=== PATIENT | male | born 1935 | race Caucasian/White ===

== ENCOUNTER 2016-07-13 16:47 | Inpatient (IN) | payer OTHER ==
[2016-07-13] MEDS ORDERED: NS 1,000 ML IV SCH (17:33)
[2016-07-13] MEDS: LEVAQUIN 500 MG/D5W 100 ML IV SCH (18:48)
[2016-07-13] MEDS ORDERED: VITAMIN K 5 MG in NS 50 ML IV ONE (21:02)
[2016-07-13 21:50] LABS: INR 8.63; PROTIME 93.5 Seconds (9.2-11.7)
[2016-07-13] MEDS: FLAGYL 500 MG/NS 100 ML IV SCH (22:02)
--- NOTE | 2016-07-13 22:23 | HISTORY AND PHYSICAL ---
PRIMARY CARE PHYSICIAN: Mart Gordon M.D. CHIEF COMPLAINT: Abdominal pain. HISTORY OF PRESENT ILLNESS: This is a 81-year-old, white male with past medical history significant for an abnormal skin examination with occasional actinic keratosis, asthma, atrial fibrillation, benign prostatic hypertrophy, history of pacemaker implantation secondary to uncontrolled atrial fibrillation, diverticulosis, moderate coronary artery disease, nonalcoholic fatty liver disease, external hemorrhoids, hyperlipidemia, hypertension, anticoagulation, mitral regurgitation, bilateral neuropathy, history of tobacco use, colonic polyps, and rheumatoid arthritis presents for evaluation of above-mentioned symptoms. Current history of present illness began approximately 2 weeks ago. At that time patient was seen by Dr. Mart Aguirre secondary to significant left hip pain. Patient was treated with a steroid injection followed by a steroid taper. The patient denied significant improvement in his hip pain. He did, however, experience significant side effects associated with steroid use. The patient complained of intermittent diaphoresis, hot flashes, and increasing abdominal bloating with constipation throughout his steroid taper. He took his last dose of prednisone on Saturday. Upon completion he has continued to complain of constipation and abdominal bloating. He has not had a bowel movement since Saturday. He denies nausea, vomiting, hematochezia, melena, and fever. He does note passing flatus. The patient was evaluated in clinic this afternoon. Patient was noted to have a distended abdomen with diffuse abdominal pain and guarding. White count was noted to be significantly elevated at 26,000. The patient was admitted immediately to [facility]. A CT scan of the abdomen and pelvis was performed. CT scan confirmed a perforation. Patient is admitted to the hospital for urgent surgical management. PAST MEDICAL HISTORY: 1. Abnormal skin examination with multiple actinic keratoses. 2. Asthma. 3. Benign prostatic hypertrophy. 4. History of pacemaker implantation in 2003 secondary to uncontrolled atrial fibrillation. 5. Colonic diverticulosis. 6. Coronary artery disease diagnosed in 2000. Left heart catheterization at that point revealed an ejection fraction of 60%, 40% LAD stenosis, 30% ramus stenosis, and 30% RCA stenosis. 7. Onychomycosis. 8. Nonalcoholic fatty liver disease. 9. External hemorrhoids. Status post surgical intervention in the . 10. Hyperlipidemia. 11. Hypertension. 12. Right inguinal hernia status post surgical intervention in 1995. 13. History of a colonic lipoma. 14. Left atrial enlargement. 15. Anticoagulation. 16. Moderate mitral regurgitation diagnosed in October 2015, followed by Dr. Alonzo. 17. Nephrolithiasis. 18. Neuropathy. 19. History of tobacco use, 1 pack per day for 18 years. He stopped in 1969. 20. Overweight. 21. History of colonic polyps. 22. History of a renal cyst. 23. Rheumatoid arthritis. 24. Tonsillitis status post tonsillectomy in 1939. 25. Umbilical hernia. CURRENT MEDICATIONS: 1. Aleve 220 mg twice daily as needed. 2. Amitriptyline 10 mg at bedtime. 3. Aspirin 81 mg every other day. 4. Folic acid 1 mg daily. 5. Lasix 20 mg daily. 6. Losartan 50 mg daily. 7. Methotrexate 2.5 mg 6 tablets on Mondays. 8. Coumadin 7.5 mg at bedtime. ALLERGIES: Patient states he is allergic to Advil, cefprozil, and penicillin. SOCIAL HISTORY: Patient is a former smoker having smoked 1 pack per day for 18 years. He quit in 1969. He has a glass of wine occasionally. Denies illicit drug use. He is a retired educator. He enjoys volunteering. He exercises routinely. FAMILY HISTORY: Patient's father passed at age 83 secondary to complications of COPD and atrial fibrillation. He had a history of coronary artery disease having suffered an acute myocardial infarction at age 51. Patient's mother passed at age 86 secondary to complications of stroke. She had a history of hyperlipidemia. REVIEW OF SYSTEMS: A 12 point review of systems was performed. Pertinent positives and negatives noted in history present illness. PHYSICAL EXAMINATION: VITAL SIGNS: Temperature 98.2 degrees, heart rate 70, respirations 20, blood pressure is 129/62. GENERAL: Well-nourished, well-developed, in no acute distress. HEENT: Normocephalic atraumatic. Pupils equal, round, reactive to light. Extraocular muscles intact. Sclerae anicteric. Townsend conjunctivae. Oral and nasopharynx clear without exudate. NECK: Supple. No lymphadenopathy. No thyromegaly. No bruits auscultated. CARDIOVASCULAR: Regular rate and rhythm. No significant murmurs, rubs or gallops. PULMONARY: Clear to auscultation bilaterally. ABDOMEN: Distended, diffusely tender with guarding. No significant rebound. Positive bowel sounds. EXTREMITIES: Moves all extremities well. No significant clubbing, cyanosis, or edema. NEUROLOGIC: Cranial nerves 2 through 12 grossly intact. Motor and sensory grossly intact. PSYCHOLOGIC: Examination is appropriate. LABORATORY DATA: White blood cell count 26.3, hemoglobin 13.5, hematocrit 41.1, platelet counts 207,000, sodium 139, potassium 4.9, chloride 103, bicarb 26, BUN 24, creatinine 1, glucose 84, calcium 8.8, total bilirubin 0.7, total protein 6.0, abdomen 3.1, alkaline phosphatase 109, AST 25, ALT 29. ASSESSMENT AND PLAN: A 81-year-old, white male with complicated past medical history as noted presents for evaluation of abdominal discomfort. CT scan confirmed a perforation. Patient will be admitted for immediate surgical consultation and management. 1. Admit to ICU. 2. Perforation - The patient's presentation is quite interesting. Patient had slowly increasing symptoms over the last several days. His examination, while abnormal, is not consistent with a perforation with associated toxicity. I suspect patient may have walled off this infection with omentum. Regardless, urgent surgical evaluation and management is warranted. I have discussed case with Dr. Contreras. We will start patient on levofloxacin and Flagyl therapy. We will address patient's anticoagulation as below. 3. Anticoagulation - Patient is anticoagulated with Coumadin. We will check a PT and INR. We will provide a dose of vitamin K. We will order fresh frozen plasma to be ready for use by Dr. Contreras. Once again, we will follow this. 4. Atrial fibrillation - The patient has an underlying pacemaker. We will hold/reverse anticoagulation as noted. We will plan to resume anticoagulation once appropriate. 5. Hypertension - We will hold patient's losartan at the present time. We will follow this. 6. Rheumatoid arthritis - We will remain aware for the immediate future, he will not be a candidate for nonsteroidal anti-inflammatory agents. 7. Fluid, electrolytes, nutrition. We will monitor electrolytes. Normal saline at 75 mL an hour, NPO prophylaxis. Patient will be placed on SCDs..
--- NOTE | 2016-07-13 22:46 | CONSULTATION ---
DATE OF CONSULTATION: 07/13/2016 REQUESTING PHYSICIAN: Dr. Mart Gordon. REASON FOR CONSULTATION: Abdominal pain and free air. HISTORY OF PRESENT ILLNESS: A 81-year-old male who has had recent significant left hip pain for several months. He has undergone some injections and started a steroid taper a little over 2 weeks ago. His last dose of steroid was 3 days ago. Over the last 2 weeks he has felt increasing abdominal pain and bloating, constipation and some sweats and hot flashes. His last bowel movement was 3 days ago and prior to that he had 1 about 3 days before that. He is currently passing gas tonight. About 2 days ago he noticed a severe increase in his abdominal pain rating it as high as a 10/10. Currently it is a 2/10. It is worsened with coughing, laughing or moving around and sitting up. It is lessened with lying completely still. No nausea or vomiting, bloody bowel movements or fever. PAST MEDICAL HISTORY: Atrial fibrillation now status post AV juan r ablation and pacemaker implementation, chronic anticoagulation on Coumadin, BPH, asthma, coronary artery disease, diverticulosis and diverticulitis, fatty liver, hypertension, mitral regurgitation, peripheral neuropathy, nephrolithiasis, obesity, rheumatoid arthritis on longstanding methotrexate . PAST SURGICAL HISTORY: Left hip replacement in 2014, right inguinal hernia repair, pacemaker placement, vasectomy, tonsillectomy. HOME MEDICATIONS: Aleve, amitriptyline, aspirin, folic acid, furosemide, losartan, methotrexate, warfarin. ALLERGIES: ADVIL, CEPHALOSPORINS, PENICILLIN. FAMILY HISTORY: COPD, atrial fibrillation, coronary artery disease, stroke, hyperlipidemia. SOCIAL HISTORY: He quit smoking over 40 years ago. He did smoke 1 pack a day for 18 years prior to that. He drinks 1 glass of Zachery and Coke at night. No illicit drug use. He is a retired educator. REVIEW OF SYSTEMS: Ten systems reviewed and negative except as noted above. PHYSICAL EXAMINATION: Vital Signs: Temperature 97.6 degrees, pulse 68, respirations 22, blood pressure 140/69, O2 saturation 100%. General: Elderly male who is nontoxic-appearing and looks his stated age. HEENT: Normocephalic, atraumatic. Extraocular muscles intact. Pupils equal, round, reactive to light. Sclerae anicteric. Moist mucous membranes. Hearing grossly normal. No oral lesions. Neck: Supple. No thyromegaly. CV: Regular rate and rhythm. Respiratory: Bilateral equal breath sounds. GI: Obese, soft, not particularly distended. He is tender diffusely especially around his umbilicus where there is reducible umbilical hernia. There is a little peritoneal irritation but no guarding or rebound at this time. Extremities: No clubbing, cyanosis, or edema. Skin: Warm and dry. No rash. Musculoskeletal: Moves all extremities equally and well. LABORATORY: White blood cell count reportedly 24,000 or 26,[address] Gordon' office today. His INR is over 8. IMAGING: CT of abdomen, pelvis with oral contrast was obtained. There is extensive amount of free air throughout the abdomen. The source is unclear. In my view there is no obvious thickened colon indicative of neoplasm or diverticulitis. I do not see an obvious inflammatory process in his distal stomach or duodenum. There just seems to be diffuse scattered air. There is some suspicious of a collection of air in the proximal small bowel near the ligament of Treitz. ASSESSMENT AND PLAN: A 81-year-old male with perforated viscus and peritonitis. The etiology is unclear. Perhaps a combination of long-term methotrexate use and recent steroid use could lead to spontaneous perforation, also possible foreign body ingestion or common things like perforated ulcer and diverticulitis. At this point, we have to get his INR reversed. We will start with FFP and vitamin K. He has been started on Levaquin and Flagyl. We will continue repeat abdominal exams and repeat his INR in the morning. If he is showing significant improvement we may continue observation as this perforation may have sealed. Otherwise I would plan on diagnostic laparoscopy versus exploratory laparotomy once his INR is less than 1.5. I have discussed this with Dr. Gordon as well as his .
[2016-07-14] MEDS: MORPHINE IV PRN ×4 (00:34→10:54)
[2016-07-14] MEDS: FLAGYL 500 MG/NS 100 ML IV SCH ×4 (03:54→23:04)
[2016-07-14 09:16] LABS: MANUAL DIFF NEEDED? NO
[2016-07-14 09:19] LABS: BASO% 0.1 % (0.0-0.8); EOS# 0.25 X1000 (0.0-0.7); EOS% 1.4 % (0.0-10.0); HEMATOCRIT 33.7 % (42.0-52.0); HEMOGLOBIN 10.8 g/dL (14.0-18.0); IMM GRAN% 1.1 % (0.0-0.5); LYMPH# 1.45 X1000 (1.2-3.4); LYMPH% 7.9 % (20.5-51.1); MCV 96.8 FL (81-99); MONO# 1.82 X1000 (0.11-0.59); MONO% 9.9 % (1.7-9.3); MPV 10.6 FL (7.4-10.4); NEUT% 79.6 % (42.2-75.2); PLT 169 X1000 (130-400); RBC 3.48 XMIL (4.7-6.1)
[2016-07-14 09:32] LABS: ALBUMIN 2.9 g/dL (3.5-5.0); CALCIUM 8.1 mg/dL (8.8-10.2); POTASSIUM 4.2 mmol/L (3.5-5.1); TOTAL BILIRUBIN 1.44 mg/dL (0.20-1.00); TOTAL PROTEIN 6.1 g/dL (6.3-8.3)
--- NOTE | 2016-07-14 10:31 | Diag Imaging Result Document ---
PROCEDURE NAME: CT ABD/PELVIS ORAL CONTR ONLY - 07/13/2016 CT OF THE ABDOMEN WITH ORAL, BUT NON INTRAVENOUS CONTRAST: FINDINGS: The visualized portion of the chest is unremarkable. There is extensive free air within the abdomen. The liver, spleen, adrenal glands, and pancreas appear to be within normal limits. There is some fullness of the collecting systems and/or parapelvic cysts bilaterally in the kidneys. There is a 3 mm calculus in the lower pole of the left collecting system. There appear to be multiple exophytic cortical cysts present on the right side, and there is an area of relatively hyperdense exophytic mass effect arising laterally form the lower pole of the right kidney, measuring approximately 2.5 cm in AP dimension. There are no previous studies available for comparison, other than a lumbar spine from 09/02/2015, which unfortunately did not include the pertinent portion of the right kidney in the field of view. CT density of this lesion exceeds 54 Hounsfield units, and this may be a hyperdense cyst. Further evaluation with ultrasonography may be desirable. There is a fair amount of stool throughout the colon, including the transverse colon. There is a fairly large amount of gas present in the fat, most likely in and around the greater omentum. There are scattered colonic diverticula and it is possible that the source of the free air is from the transverse colon. However, there are also extensive collections of gas in the mesenteric fat posterior to this and in close proximity to several small bowel loops. There is also a collection of free extraluminal gas seen around image 72, which is in fairly close approximation to the fourth portion of the duodenum extending caudally to just above the sigmoid colon. There are numerous diverticula in the sigmoid. The appendix is located lateral to the inferior edge of the liver and is not distended. There is a hip prosthesis on the left, which produces some beam-hardening artifact in the pelvis, but there is no evidence of significant free fluid in the pelvis. The gas collection is associated with a slight air fluid level at the image of 84, and this may represent an early abscess. Spondylotic changes are seen in the lumbar spine. IMPRESSION: 1. Pneumoperitoneum, the source of which is not entirely clear, but is most likely a result of a perforated diverticulum either in the transverse colon or the sigmoid colon. 2. Apparently midabdominal abscess extending into the upper pelvis. 3. Other nonacute findings described above. The findings were discussed by telephone with Dr. Mart Gordon at 2050 hours.
[2016-07-14 11:05] LABS: INR 1.31; PROTIME 13.9 Seconds (9.2-11.7)
--- NOTE | 2016-07-14 11:05 | PROGRESS NOTE ---
DATE: 07/14/2016 SUBJECTIVE: The patient continues to complain of abdominal pain. He has not noticed any significant improvement overnight. OBJECTIVE: He is afebrile. Pulse is 73, but paced, respiratory rate 19, blood pressure 168/83. O2 saturation 97%. Urine output 475 mL.General: He is alert and oriented x4. He is in no acute distress. CV: Regular rate and rhythm. Respiratory: No work of breathing. Bilateral breath sounds. GI: Soft, somewhat distended, diffusely tender with some mild peritoneal irritation. LABORATORY: White blood cell count 77753, hemoglobin 10.8, platelet count 169,000. Complete metabolic profile reviewed and unremarkable. Albumin is noted to be 2.9, INR was checked this morning and after 4 units of FFP his INR is 1.3. IMAGING: The CT of abdomen and pelvis report was reviewed and there is significant amount of free air in the abdomen. The source is unclear. There is also a gas collection with air-fluid level possibly representing an abscess in the lower abdomen and pelvis area. ASSESSMENT AND PLAN: A 81-year-old man with a perforated viscus. The etiology is unclear. His comorbidities include chronic anticoagulation. He is pacemaker dependent. He is on chronic methotrexate for rheumatoid arthritis and recent steroids for left hip pain. Given his continued abdominal exam findings, CT scan findings and concern for worsening intra-abdominal process, I feel exploration is indicated. We will proceed with diagnostic laparoscopy and possible laparotomy with bowel resection or repair of the area of the injury as indicated. We discussed the risks and benefits, including bleeding, ongoing intra-abdominal infection or wound infection, an incisional hernia, possible need for bowel resection or colostomy, injury to surrounding organs, heart failure, pneumonia and other imponderables. He understands and agrees to proceed.
[2016-07-14] MEDS: NS 1,000 ML IV SCH ×3 (11:34→23:02)
--- NOTE | 2016-07-14 11:38 | PROGRESS NOTE ---
DATE: 07/14/2016 SUBJECTIVE: The patient was admitted yesterday with a perforated viscus. The patient's vital signs were stable. The patient's INR was noted to be supratherapeutic. Dr. Sibley was consulted. Because of the supratherapeutic INR and patient's stable condition, surgery was placed on hold until a more safe INR was achieved. Over the course of the night, the patient did reasonably well in the ICU setting. He continues to have some intermittent pain, but this is well controlled with as-needed morphine. The patient has developed no evidence of fever. His blood pressures have been acceptable. He denies significant nausea or vomiting at the present time. OBJECTIVE: Vital signs: T-max 98.6, heart rate 70-73, respirations 16-27, blood pressure 119 to 168 over 63 to 89. General: Well nourished, well developed, in no acute distress. Cardiovascular: Regular rate and rhythm. No significant murmur, rub, or gallops. Pulmonary: Clear to auscultation anteriorly. Abdomen: Distended, diffusely tender with guarding, but no significant rebound. Positive bowel sounds. Extremities: Moves all extremities well. No significant clubbing, cyanosis, or edema. Dermatologic: Reveals no evidence of rash. LABORATORY DATA: White blood cell count 18.30, hemoglobin 10.8, hematocrit 33.7, platelet count 169,000. Sodium 138, potassium 4.2, chloride 100, bicarbonate 26, BUN 25, creatinine 1.2, glucose 75. Calcium 8.1. Total bilirubin 0.44. Total protein 6.1. Albumin 2.9. Alkaline phosphatase 104, AST 21, ALT 25. Amylase 38, lipase 81. PT/INR pending. ASSESSMENT AND PLAN: 1. Perforated viscus--as above, the patient's condition remains stable. We will plan a laparoscopy and possible laparotomy this morning depending on his INR. We will continue supportive care until then. He is being treated with both levofloxacin and Flagyl therapy. Pain is controlled with as-needed morphine. 2. Anticoagulation--the patient has received Vitamin K and 4 units of FFP. As above, we will follow up on his PT and INR. 3. Atrial fibrillation--as above, we will hold and reverse patient's anticoagulation. He is rate controlled at the present time. We will follow this. 4. Hypertension--the patient's blood pressure is elevated. For now, we will continue to hold his losartan therapy. 5. Rheumatoid arthritis--we will remain aware. 6. Disposition--at this point, the patient continues to require shelter care in the hospital setting. We will plan to discharge to the general medicine floor once appropriate.
[2016-07-14] MEDS ORDERED: SENSORCAINE 0.25%/EPI 1:200,000 ONE (12:04)
[2016-07-14] MEDS ORDERED: LR 1,000 ML ONE (12:04)
[2016-07-14 13:34] LABS: URINE MICRO REVIEW NEEDED? NO; URINE SOURCE CATH
[2016-07-14 13:38] LABS: BILIRUBIN URINE NEGATIVE (NEGATIVE); BLOOD URINE NEGATIVE (NEGATIVE); COLOR YELLOW; GLUCOSE URINE NEGATIVE (NEGATIVE); LEUKOCYTES URINE NEGATIVE (NEGATIVE); NITRITE URINE NEGATIVE (NEGATIVE); PROTEIN URINE 30 mg/dL (NEGATIVE); SP GRAVITY URINE 1.019; TURBIDITY URINE CLEAR (CLEAR); UR EPITHELIAL CELLS <10 /HPF (<10); URINE BACTERIA NEGATIVE /HPF; URINE RBC <10 /HPF (<10); URINE WBC <10 /HPF (<10); UROBILINOGEN URINE NORMAL (NORMAL)
[2016-07-14] MEDS ORDERED: FENTANYL ONE (14:43)
[2016-07-14] MEDS ORDERED: DILAUDID ONE (14:44)
[2016-07-14] MEDS: LEVAQUIN 500 MG/D5W 100 ML IV SCH (18:21)
[2016-07-14] MEDS: OFIRMEV 1000 MG/ISOTONIC SOLN 100 ML IV SCH (19:39)
[2016-07-14] MEDS: PERIDEX MT SCH (20:59)
[2016-07-15] MEDS: OFIRMEV 1000 MG/ISOTONIC SOLN 100 ML IV SCH ×4 (01:04→20:12)
[2016-07-15 04:49] LABS: BASO% 0.1 % (0.0-0.8); EOS# 0.03 X1000 (0.0-0.7); EOS% 0.2 % (0.0-10.0); HEMATOCRIT 35.4 % (42.0-52.0); HEMOGLOBIN 11.3 g/dL (14.0-18.0); IMM GRAN# 0.18 X1000 (0.0-0.04); LYMPH# 0.87 X1000 (1.2-3.4); LYMPH% 4.8 % (20.5-51.1); MANUAL DIFF NEEDED? YES; MCH 31.2 PG (27-31); MCHC 31.9 g/dL (33-37); MCV 97.8 FL (81-99); MONO# 0.75 X1000 (0.11-0.59); MONO% 4.2 % (1.7-9.3); MPV 10.6 FL (7.4-10.4); NEUT% 89.7 % (42.2-75.2); PLT 192 X1000 (130-400); RBC 3.62 XMIL (4.7-6.1)
[2016-07-15 05:02] LABS: ALBUMIN 2.5 g/dL (3.5-5.0); CALCIUM 7.8 mg/dL (8.8-10.2); POTASSIUM 4.8 mmol/L (3.5-5.1); TOTAL BILIRUBIN 0.75 mg/dL (0.20-1.00); TOTAL PROTEIN 5.6 g/dL (6.3-8.3)
[2016-07-15] MEDS: FLAGYL 500 MG/NS 100 ML IV SCH ×3 (05:03→16:46)
[2016-07-15 05:06] LABS: MONO 4 % (1-9)
[2016-07-15] MEDS: DILAUDID IV PRN ×4 (05:11→20:11)
[2016-07-15 05:44] LABS: INR 1.58; PROTIME 16.8 Seconds (9.2-11.7)
[2016-07-15] MEDS ORDERED: NS 1,000 ML IV ONE (08:38)
--- NOTE | 2016-07-15 09:20 | PROGRESS NOTE ---
DATE: 07/15/2016 SUBJECTIVE: The patient has some abdominal pain but it is different than before surgery. He has not had any nausea or vomiting. No chest pain. He has a little shortness of breath when he moves around. OBJECTIVE: Vital Signs: He is afebrile. Pulse 72, respirations 18, blood pressure 158/82, O2 saturation 95%. He is sitting up in a chair and nontoxic appearing. General: He is alert and oriented x4. In no acute distress. CV: Regular rate and rhythm. Respiratory: Bilateral equal breath sounds. No rales or wheezing. GI: Soft, nondistended. Hypoactive bowel sounds. Appropriately tender. Is and Os: His bilateral CHESTER drains have serosanguineous fluid. Number 1 put out 125 mL and number 2 put out 90 mL. NG tube only put out 185 mL. Urine output 600 mL. Laboratory: White cell count 18,000, hemoglobin 11, platelet count 192,000. Sodium 138, potassium 4.2, chloride 102, CO2 of 22, BUN 33, creatinine 1.3, glucose 104. INR 1.6. Albumin 2.5. ASSESSMENT AND PLAN: A 81-year-old male status post exploratory laparotomy and drainage of intra- abdominal abscess, likely secondary to perforated viscus. He is hemodynamically stable. He had some azotemia. We will give him a fluid challenge. He will continue with bowel rest and broad- spectrum antibiotics. We can begin to make arrangements to move to a floor bed.
[2016-07-15] MEDS ORDERED: LASIX IV ONE (09:29)
[2016-07-15] MEDS: PERIDEX MT SCH ×2 (09:35→20:12)
[2016-07-15] MEDS: HEPARIN SUBQ SCH ×2 (09:35→16:46)
[2016-07-15] MEDS: NS 1,000 ML IV SCH (09:50)
--- NOTE | 2016-07-15 10:07 | PROGRESS NOTE ---
DATE: 07/15/2016 SUBJECTIVE: The patient is postoperative day #1, exploratory laparotomy. A controlled abscess was identified. No definitive etiology of perforation was appreciated. The abscess was drained. The patient's postoperative course, thus far, has been uneventful. The patient states his abdominal discomfort has improved. There has been no evidence of fevers or chills. He currently is passing no flatus. He has an NG tube intact but denies nausea or vomiting. OBJECTIVE: Vital Signs: T-max is 98.6 degrees, heart rate 69-73, respirations 9-16, blood pressure 104-138/60-72. General: Well nourished, well developed, in no acute distress. Cardiovascular: Regular rate and rhythm. No significant murmurs, rubs, or gallops. Pulmonary: Clear to auscultation bilaterally. Abdomen: Postsurgical. Decreased bowel sounds. Extremities: Moves all extremities well. No significant clubbing or cyanosis. Patient has 2+ lower extremity edema. Dermatologic: Evaluation reveals no evidence of rash. Laboratory Data: White blood cell count 18.05, hemoglobin 11.3, hematocrit 35.4, platelet count is 192,000. PT 16.8, INR of 1.58. Sodium 138, potassium 4.8, chloride 102, bicarb 22, BUN 33, creatinine 1.3, glucose 104, calcium 7.8. Total bilirubin 0.75, total protein 5.6, albumin 2.5, alkaline phosphatase 92, AST 22, ALT 25. ASSESSMENT AND PLAN: 1. Perforated viscus with abscess formation-patient is postoperative day #1. Patient tolerated procedure well. No definitive etiology of the perforation was identified. I suspect this represents a self-limiting perforation. For now, we will continue broad-spectrum antibiotic therapy. We will defer postoperative management to Dr. Sibley. 2. Anticoagulation-patient received vitamin K and 4 units of fresh frozen plasma prior to surgical intervention. His PT and INR are as noted above. At this point, we will hold anticoagulation. We will resume anticoagulation once appropriate per Dr. Sibley. 3. Atrial fibrillation-patient is status post a pacemaker, ablation in the past. We will remain aware. 4. Hypertension-patient's blood pressure is controlled at the present time. We will continue his current regimen. 5. Rheumatoid arthritis-we will remain aware. 6. Volume overload-we will decrease patient's normal saline to 50 mL an hour. We will provide low-dose Lasix. 7. Disposition-at this point, patient continues to require fpc care in the hospital setting. We will plan to transfer the patient from the intensive care unit to the surgical floor.
[2016-07-15] MEDS: LEVAQUIN 500 MG/D5W 100 ML IV SCH (20:47)
[2016-07-16] MEDS: DILAUDID IV PRN ×3 (00:39→21:48)
[2016-07-16] MEDS: FLAGYL 500 MG/NS 100 ML IV SCH ×5 (00:40→18:47)
[2016-07-16] MEDS: HEPARIN SUBQ SCH ×3 (03:43→18:49)
[2016-07-16] MEDS: OFIRMEV 1000 MG/ISOTONIC SOLN 100 ML IV SCH ×4 (03:43→22:52)
[2016-07-16 05:29] LABS: MANUAL DIFF NEEDED? NO
[2016-07-16 05:32] LABS: BASO% 0.1 % (0.0-0.8); EOS# 0.01 X1000 (0.0-0.7); EOS% 0.1 % (0.0-10.0); HEMATOCRIT 36.8 % (42.0-52.0); HEMOGLOBIN 11.6 g/dL (14.0-18.0); IMM GRAN# 0.27 X1000 (0.0-0.04); IMM GRAN% 1.4 % (0.0-0.5); LYMPH# 1.43 X1000 (1.2-3.4); LYMPH% 7.2 % (20.5-51.1); MCHC 31.5 g/dL (33-37); MCV 98.4 FL (81-99); MONO# 1.72 X1000 (0.11-0.59); MONO% 8.6 % (1.7-9.3); MPV 10.6 FL (7.4-10.4); NEUT% 82.6 % (42.2-75.2); PLT 235 X1000 (130-400); RBC 3.74 XMIL (4.7-6.1)
[2016-07-16 05:40] LABS: INR 2.32; PROTIME 24.8 Seconds (9.2-11.7)
[2016-07-16 05:48] LABS: ALBUMIN 2.5 g/dL (3.5-5.0); CALCIUM 8.1 mg/dL (8.8-10.2); POTASSIUM 5.4 mmol/L (3.5-5.1); TOTAL BILIRUBIN 0.53 mg/dL (0.20-1.00); TOTAL PROTEIN 5.6 g/dL (6.3-8.3)
[2016-07-16] MEDS ORDERED: ZEMURON ONE (08:07)
[2016-07-16] MEDS ORDERED: DECADRON ONE (08:07)
[2016-07-16] MEDS ORDERED: AMIDATE ONE (08:07)
[2016-07-16] MEDS ORDERED: ANESTHESIA PB SET 88 IN 5742 ONE (08:07)
[2016-07-16] MEDS ORDERED: QUELICIN (DOSE) ONE (08:07)
[2016-07-16] MEDS ORDERED: NEOSTIGMINE ONE (08:07)
[2016-07-16] MEDS ORDERED: ROBINUL ONE (08:07)
[2016-07-16] MEDS ORDERED: LR 4,000 ML ONE (08:07)
[2016-07-16] MEDS ORDERED: OFIRMEV 1000 MG/ISOTONIC SOLN 100 ML ONE (08:07)
[2016-07-16] MEDS ORDERED: ZOFRAN ONE (08:07)
[2016-07-16] MEDS ORDERED: GENTAMICIN IV PER PHARMACY MISC SCH (08:15)
[2016-07-16] MEDS: PERIDEX MT SCH ×2 (10:31→20:19)
[2016-07-16] MEDS: ZOFRAN IV PRN ×2 (12:47→21:48)
[2016-07-16] MEDS: MORPHINE IV PRN ×2 (12:49→20:19)
[2016-07-16] MEDS ORDERED: NS IV SCH (13:00)
[2016-07-16] MEDS ORDERED: GENTAMICIN IV SCH (13:00)
[2016-07-16] MEDS: NS 1,000 ML IV SCH (14:51)
[2016-07-16 14:55] LABS: CALCIUM 8.4 mg/dL (8.8-10.2); POTASSIUM 5.6 mmol/L (3.5-5.1)
--- NOTE | 2016-07-16 17:25 | PROGRESS NOTE ---
DATE: 07/16/2016 SUBJECTIVE: The patient says he feels okay today. He has had a little nausea. No severe pain. He walked a little. No passage of gas yet. OBJECTIVE: Vital signs: He is afebrile. Vital signs are stable. Urine output overnight was a little over 1 L. NG tube output 570. His drains have put out 65 and 55 mL each. They are serosanguineous in nature. General: He is alert oriented x3. No acute distress. CV: Regular rate and rhythm. Respiratory: Bilateral breath sounds. No work of breathing. GI: Soft, mildly protuberant. He had a few bowel sounds. Incisional dressing is dry with some old shadowing on it. LABORATORY: White blood cell count 19.9, hemoglobin 11. INR 2.3. Sodium 143, potassium 5.6, chloride 105, CO2 29, BUN 37, creatinine 1.3, glucose 98. ASSESSMENT/PLAN: A 81-year-old male status post exploratory laparotomy with drainage of intraabdominal and intramesenteric abscess likely from perforated viscus. He will continue on broad-spectrum antibiotics for now. We were awaiting culture results. His INR is now back into the therapeutic range. We will keep him n.p.o. for now with an NG tube until his bowel function improves.
[2016-07-16] MEDS ORDERED: NS 1,000 ML IV ONE (18:57)
--- NOTE | 2016-07-16 22:53 | PROGRESS NOTE ---
DATE: 07/16/2016 SUBJECTIVE: The patient states, overall, he feels reasonably well. He is postoperative day #2 exploratory laparotomy. He continues to have some postoperative pain, reasonably controlled with morphine therapy. NG tube remains intact. He has passed no flatus or had a bowel movement today. He denies fever, chills, nausea, and vomiting. OBJECTIVE: Vital signs: Temperature maximum 99.2 degrees, heart rate 70-86, respirations 14-18 blood pressure 140-178/71-80. General: Well nourished, well developed, no acute distress. Cardiovascular: Regular rate and rhythm. No significant murmurs, rubs, or gallops. Pulmonary: Clear to auscultation anteriorly. Abdomen: Slightly distended. Postoperative tenderness. Decreased bowel sounds. Extremities: Moves all extremities well. No significant clubbing, cyanosis. Patient has 1+ upper and lower extremity edema bilaterally. Dermatologic: Evaluation reveals no evidence of rash. LABORATORY DATA: White blood cell count 19.4, hemoglobin 11.6, hematocrit 36.8, platelet counts 235,000. PT 24.8, INR is 2.32. Sodium 143, potassium 5.6, chloride 105, bicarb 29, BUN 37, creatinine 1.3, glucose 98, calcium 8.4, total bilirubin 0.53, total protein 5.6, albumin 2.5. Alkaline phosphatase 88, AST 21, ALT 23. ASSESSMENT AND PLAN: 1. Perforated viscus with abscess formation-patient is postoperative day #1. White blood cell count today is slightly higher than yesterday. Abscess cultures grew Escherichia coli resistant to levofloxacin therapy. We will convert the patient from levofloxacin to gentamicin therapy. We will continue Flagyl for now. Will defer postoperative management to Dr. Sibley. 2. Anticoagulation-the patient was treated with vitamin K and fresh frozen plasma prior to procedure. His international normalized ratio is currently therapeutic. We will plan to resume Coumadin therapy once taking p.o. 3. Hyperkalemia-patient potassium is slightly elevated. His electrocardiogram is acceptable. At this point, I am unable to use Kayexalate with exception of rectally. As patient is asymptomatic with normal electrocardiogram, we will hydrate the patient aggressively. We will plan a recheck in the morning and determine if further intervention and evaluation is warranted. 4. Urinary retention-patient's Henderson catheter was removed this morning. Patient is having difficulty voiding. The question is raised whether this is urinary retention secondary to Henderson catheter use and prostatic issues or if this simply is secondary to morphine therapy. We will also follow patient. If he is unable to void effectively, we will plan to resume folic acid replacement. This will be followed. 5. Atrial fibrillation status post pacemaker implantation-patient is status post pacemaker ablation. We will remain aware. We will anticoagulate as above. 6. Hypertension-patient's blood pressure is reasonably controlled at present time. 7. Rheumatoid arthritis-we will remain aware. 8. Slight volume overload-patient is volume up. Unfortunately, he is not making adequate urine. In the setting of hyperkalemia, I do feel aggressive volume resuscitation outweighs the risk. We will follow this. 9. Disposition-at this point, patient continued to require jail care in a hospital setting. We will plan discharge home once appropriate.
[2016-07-17] MEDS: FLAGYL 500 MG/NS 100 ML IV SCH ×4 (00:16→18:25)
[2016-07-17] MEDS: NS 1,000 ML IV SCH ×2 (01:26→03:48)
[2016-07-17] MEDS: HEPARIN SUBQ SCH ×4 (03:47→18:26)
[2016-07-17] MEDS: OFIRMEV 1000 MG/ISOTONIC SOLN 100 ML IV SCH ×4 (03:48→21:48)
[2016-07-17 05:23] LABS: MANUAL DIFF NEEDED? NO
[2016-07-17 05:26] LABS: BASO% 0.2 % (0.0-0.8); EOS# 0.08 X1000 (0.0-0.7); EOS% 0.4 % (0.0-10.0); HEMATOCRIT 35.8 % (42.0-52.0); HEMOGLOBIN 11.2 g/dL (14.0-18.0); IMM GRAN# 0.21 X1000 (0.0-0.04); IMM GRAN% 1.1 % (0.0-0.5); LYMPH# 1.66 X1000 (1.2-3.4); LYMPH% 8.5 % (20.5-51.1); MCH 30.9 PG (27-31); MCHC 31.3 g/dL (33-37); MCV 98.6 FL (81-99); MONO# 1.48 X1000 (0.11-0.59); MONO% 7.6 % (1.7-9.3); MPV 10.5 FL (7.4-10.4); NEUT% 82.2 % (42.2-75.2); PLT 236 X1000 (130-400); RBC 3.63 XMIL (4.7-6.1)
--- NOTE | 2016-07-17 05:28 | EKG Report ---
Test Performed on : 07/16/2016 7:07:03 PM Test Reason : hyperkalemia Blood Pressure : / mmHG Vent. Rate : 070 BPM Atrial Rate : 441 BPM P-R Int : 000 ms QRS Dur : 172 ms QT Int : 478 ms P-R-T Axes : 000 -78 072 degrees QTc Int : 516 ms Ventricular-paced rhythm Abnormal ECG When compared with ECG of 25-OCT-2014 09:00, No significant change was found Confirmed by Zac Alonzo DO ([id number]) on 07/20/2016 2:23:11 PM
[2016-07-17 05:59] LABS: AGAP 12; ALBUMIN 2.4 g/dL (3.5-5.0); ALKALINE PHOSPHATASE 80 U/L (32-122); BUN 32 mg/dL (8-22); CHLORIDE 106 mmol/L (98-107); COSMO 295; GOT 19 U/L (10-34); GPT 20 U/L (10-44); SODIUM 145 mmol/L (136-145); TCO2 27 mmol/L (25-35); TOTAL BILIRUBIN 0.47 mg/dL (0.20-1.00); TOTAL PROTEIN 5.3 g/dL (6.3-8.3)
[2016-07-17] MEDS: DILAUDID IV PRN (06:24)
[2016-07-17] MEDS: ZOFRAN IV PRN ×2 (06:24→21:47)
[2016-07-17] MEDS: MORPHINE IV PRN ×3 (09:12→21:47)
[2016-07-17] MEDS: PERIDEX MT SCH ×2 (09:12→23:51)
[2016-07-17] MEDS: GENTAMICIN IV SCH (15:44)
[2016-07-17] MEDS: NS IV SCH (15:44)
--- NOTE | 2016-07-17 20:17 | PROGRESS NOTE ---
DATE: 07/17/2016 SUBJECTIVE: Overall, patient states he feels reasonably well. Last night, because of hyperkalemia, patient was given a bolus of normal saline. He tolerated this very well. We discussed signs and symptoms of urinary retention. Because symptoms persisted, patient had a Henderson catheter placed. His NG tube remains on suction. He denies passing flatus or having a bowel movement. He denies fevers, chills, nausea, and vomiting. OBJECTIVE: Vital signs: Temperature maximum 99.2 degrees, heart rate 66-86, respirations 14-18, blood pressure 144-166/62-76. General: A well-nourished, well-developed, no acute distress. Cardiovascular: Regular rate and rhythm. No significant murmurs, rubs, or gallops. Pulmonary: Clear to auscultation anteriorly. Abdomen: Slightly distended. Postsurgical tenderness. No significant bowel sounds appreciated. Extremities: Moves all extremities well. 1+ lower and upper extremity edema. No clubbing or cyanosis. Dermatologic: Evaluation reveals no evidence of a rash. LABORATORY DATA: White blood cell count 19.46, hemoglobin 11.2, hematocrit 35.8, platelet count 236,000. Sodium 144, potassium 4, chloride 106, bicarb 27, BUN 30, creatinine 1, glucose 90, calcium 8, total bilirubin 0.47. Total protein 5.3, albumin 2.4, alkaline phosphatase 80, AST 19, ALT 20. ASSESSMENT/PLAN: 1. Perforated viscus with abscess formation-patient is postoperative day #3. Abscess grew Escherichia coli and Proteus. Each are sensitive to gentamicin therapy. Antibiotics were transitioned yesterday. Thus far, he is tolerating well. Flagyl therapy has been continued secondary to the possibility of anaerobic infection. He continues to experience a postoperative ileus. We will defer further postoperative orders to Dr. Sibley. 2. Leukocytosis-this is considerable, but stable. We will continue his current regimen. 3. Anticoagulation-patient was treated with vitamin K and fresh frozen plasma prior to his surgical intervention. He currently is being treated with Pradaxa therapy. We will resume Coumadin therapy once taking p.o. 4. Hyperkalemia-patient received improvement with hydration. We will remain aware. 5. Urinary retention-the question is raised whether this is secondary to prostatic enlargement or medication induced, likely secondary to morphine. For now, we will continue Henderson catheter placement. We will remain aware. 6. Atrial fibrillation-patient is status post pacemaker ablation in the past. His rate is controlled. We will plan to resume anticoagulation in the near future. 7. Hypertension-patient's blood pressure is reasonably controlled at present time. 8. Rheumatoid arthritis.-we will remain aware. 9. Mild volume overload-at this point, the benefits of hydration outweighs the risk. We will remain aware. 10. Disposition-at this point, patient continues to require detention care in a hospital setting. We will plan discharge home once appropriate.
--- NOTE | 2016-07-17 20:23 | PROGRESS NOTE ---
DATE: 07/17/2016 SUBJECTIVE: The patient says he feels fair today. He has some nausea. No significant increase in abdominal pain. He did ambulate some today. No flatus or bowel movement yet. OBJECTIVE: Vital signs: He is afebrile. His vital signs are stable. NG tube put out 1000 mL yesterday and 425 mL so far today. His CHESTER drains were serosanguineous and less than 30 mL. General: He is alert, oriented x3. No acute distress. NG tube has dark bilious material in it. CV: Regular rate and rhythm. Respiratory: No work of breathing. GI: Soft, obese, mild tenderness. Hypoactive bowel sounds. His lower midline incision is red with some cloudy drainage. I removed a few tamra and drained out some more cloudy looking bloody tinged drainage. LABORATORY: White blood cell count 19,000, hemoglobin 11, platelet count 236,000. Metabolic profile reviewed and notable for an improved BUN and creatinine at 32 and 1.0 respectively. Abscess culture is positive for E. coli and Proteus mirabilis. These were both sensitive to the gentamicin which he is on. ASSESSMENT AND PLAN: A 81-year-old male status post exploratory laparotomy with drainage of intraabdominal abscess likely secondary to perforated viscus. There does not appear to be any active intestinal leakage at this time. I think he is having an early wound infection and hopefully with better drainage this will clear. We are awaiting return of bowel function. I think we can stop his Flagyl at this time.
[2016-07-17] MEDS: CLINIMIX E 4.25%-5% SOLUTION 1,000 ML IV SCH (21:48)
[2016-07-18] MEDS: HEPARIN SUBQ SCH (04:04)
[2016-07-18] MEDS: OFIRMEV 1000 MG/ISOTONIC SOLN 100 ML IV SCH ×4 (04:04→22:30)
[2016-07-18 05:51] LABS: MANUAL DIFF NEEDED? NO
[2016-07-18 06:00] LABS: BASO% 0.2 % (0.0-0.8); EOS% 0.5 % (0.0-10.0); HEMATOCRIT 36.1 % (42.0-52.0); HEMOGLOBIN 11.1 g/dL (14.0-18.0); IMM GRAN# 0.27 X1000 (0.0-0.04); IMM GRAN% 1.5 % (0.0-0.5); LYMPH# 1.73 X1000 (1.2-3.4); LYMPH% 9.4 % (20.5-51.1); MCH 30.7 PG (27-31); MCHC 30.7 g/dL (33-37); MONO# 1.05 X1000 (0.11-0.59); MONO% 5.7 % (1.7-9.3); MPV 10.7 FL (7.4-10.4); NEUT% 82.7 % (42.2-75.2); PLT 256 X1000 (130-400); RBC 3.61 XMIL (4.7-6.1)
[2016-07-18 06:26] LABS: AGAP 10; BUN 32 mg/dL (8-22); CALCIUM 8.2 mg/dL (8.8-10.2); CHLORIDE 107 mmol/L (98-107); COSMO 300; POTASSIUM 4.5 mmol/L (3.5-5.1); SODIUM 147 mmol/L (136-145); TCO2 30 mmol/L (25-35)
[2016-07-18 06:27] LABS: INR 3.59; PROTIME 38.6 Seconds (9.2-11.7)
[2016-07-18] MEDS: ZOFRAN IV PRN ×3 (09:09→20:25)
[2016-07-18] MEDS: DILAUDID IV PRN ×3 (09:10→20:25)
[2016-07-18] MEDS: PERIDEX MT SCH ×2 (09:11→20:26)
--- NOTE | 2016-07-18 11:15 | PROGRESS NOTE ---
DATE: 07/18/2016 SUBJECTIVE: This morning, patient states he feels reasonably well. Earlier, the patient was walked with physical therapy and experienced some drainage from his incision site. The patient noted increasing pain. Since that time, he has received pain medications with improvement. He has had no further drainage. He denies fevers, chills, nausea, vomiting, shortness of breath, or chest discomfort. He has passed no flatus nor had a bowel movement. OBJECTIVE: Vital Signs: T-max 98.4 degrees, heart rate 67-72, respirations 16-18, blood pressure 145-150/64-72. General: Well nourished, well developed, no acute distress. Cardiovascular: Regular rate and rhythm. No significant murmurs, rubs, or gallops. Pulmonary: Clear to auscultation anteriorly. Abdomen: Postsurgical. Slightly distended. Minimal bowel sounds are present. Extremities: Moves all extremities well. No significant clubbing or cyanosis. Patient has 1+ lower extremity edema bilaterally. Dermatologic: Evaluation reveals no evidence of a rash. Wound is dressed. Laboratory Data: White blood cell count 18.5, hemoglobin 11.1, hematocrit 36.1, platelet count is 256,000. PT 38.6, INR is 3.59. Sodium 147, potassium 4.5, chloride 107, bicarb 30, BUN 32, creatinine 1, glucose 108, calcium 8.2. ASSESSMENT AND PLAN: 1. Perforated viscus with abscess formation-patient is postoperative day #4. Abscess grew Escherichia coli and Proteus. Each was sensitive to gentamicin. We will continue this as well as Flagyl for coverage of anaerobic bacteria. We will defer incision and postsurgical management to Dr. Sibley. 2. Leukocytosis-this is slightly improved from yesterday. We will remain aware. 3. Anticoagulation-patient was treated with vitamin K and fresh frozen plasma prior to surgery. Interestingly, patient's INR has increased from last evaluation. We will discontinue heparin products. We will continue to follow PT and INR evaluations. We will determine if further vitamin K is necessary. 4. Hyperkalemia-patient achieved improvement with hydration. Potassium is trending upwards. We will follow this. 5. Urinary retention-this likely is secondary to either prostatic enlargement or medication induced. We will continue Henderson catheter for now. 6. Atrial fibrillation-patient is status post pacemaker and ablation in the past. He is rate controlled. We will follow anticoagulation as above. 7. Hypertension-patient's blood pressure is reasonably controlled at present time. We will remain aware. 8. Rheumatoid arthritis-we will remain aware. He currently is receiving no medical intervention. 9. Mild volume overload-at this point, the benefits of volume resuscitation outweigh the risks. We will follow his volume status closely. He has no evidence of pulmonary compromise. 10. Disposition-at this point, patient continues to require nursing home care in a hospital setting. We will plan discharge home once appropriate.
[2016-07-18] MEDS: FLAGYL 500 MG/NS 100 ML IV SCH ×2 (12:43→18:18)
--- NOTE | 2016-07-18 13:45 | PROGRESS NOTE ---
DATE: 07/18/2016 SUBJECTIVE: The patient complains of some drainage from his lower incision. Otherwise, he has been up and walked. He has had some nausea and some moderate pain in his abdomen. OBJECTIVE: Vital Signs: He is afebrile. Vital signs were stable. NG tube with over 2 L of output over the last day and a half. CHESTER drains were serosanguineous with scant drainage. General: He is alert and oriented x4. No acute distress. GI: Soft, protuberant. Decreased bowel sounds. Moderately tender. Incision is intact superiorly. At the inferior aspect the tamra were taken out. There is some cloudy reddish fluid. No definite bile or stool seen. The surrounding skin is mildly red in this area. The wound was repacked with gauze. LABORATORY: White blood cell count 18.5, hemoglobin 11. INR 3.6, BUN 32, creatinine 1.0. ASSESSMENT AND PLAN: A 81-year-old male status post drainage of intra-abdominal abscess for likely perforated viscus. He has an ileus at this time. He also has a wound infection. He is on gentamicin. We are doing dressing changes with the wound. He will remain on nothing by mouth with a nasogastric tube until bowel function returns. He is getting Clinimix for now for nutrition.
[2016-07-18] MEDS: GENTAMICIN IV SCH (14:55)
[2016-07-18] MEDS: NS IV SCH (14:55)
[2016-07-18] MEDS ORDERED: BLISTEX MEDICATED BERRY LIP BALM TOP PRN (17:54)
[2016-07-18] MEDS: CLINIMIX E 4.25%-5% SOLUTION 1,000 ML IV SCH (18:19)
[2016-07-19] MEDS: FLAGYL 500 MG/NS 100 ML IV SCH ×5 (00:20→23:26)
[2016-07-19] MEDS: DILAUDID IV PRN ×2 (03:03→09:23)
[2016-07-19] MEDS: ZOFRAN IV PRN ×2 (03:03→09:23)
[2016-07-19] MEDS: OFIRMEV 1000 MG/ISOTONIC SOLN 100 ML IV SCH ×4 (05:00→22:53)
[2016-07-19 05:35] LABS: MANUAL DIFF NEEDED? NO
[2016-07-19 05:42] LABS: BASO% 0.2 % (0.0-0.8); EOS# 0.18 X1000 (0.0-0.7); EOS% 1.2 % (0.0-10.0); IMM GRAN# 0.26 X1000 (0.0-0.04); IMM GRAN% 1.7 % (0.0-0.5); LYMPH# 1.16 X1000 (1.2-3.4); LYMPH% 7.5 % (20.5-51.1); MCH 30.8 PG (27-31); MCHC 30.6 g/dL (33-37); MCV 100.8 FL (81-99); MONO# 0.97 X1000 (0.11-0.59); MONO% 6.2 % (1.7-9.3); MPV 10.5 FL (7.4-10.4); NEUT% 83.2 % (42.2-75.2); PLT 288 X1000 (130-400); RBC 3.57 XMIL (4.7-6.1)
[2016-07-19 06:01] LABS: AGAP 8; ALBUMIN 2.3 g/dL (3.5-5.0); ALKALINE PHOSPHATASE 74 U/L (32-122); BUN 30 mg/dL (8-22); CALCIUM 8.4 mg/dL (8.8-10.2); CHLORIDE 106 mmol/L (98-107); COSMO 298; GOT 18 U/L (10-34); GPT 18 U/L (10-44); INR 4.19; POTASSIUM 3.8 mmol/L (3.5-5.1); PROTIME 45.1 Seconds (9.2-11.7); SODIUM 146 mmol/L (136-145); TCO2 32 mmol/L (25-35); TOTAL BILIRUBIN 0.34 mg/dL (0.20-1.00); TOTAL PROTEIN 5.2 g/dL (6.3-8.3)
[2016-07-19] MEDS: PERIDEX MT SCH ×2 (09:24→22:19)
[2016-07-19] MEDS: CLINIMIX E 4.25%-5% SOLUTION 1,000 ML IV SCH (11:53)
--- NOTE | 2016-07-19 14:08 | PROGRESS NOTE ---
DATE: 07/19/2016 SUBJECTIVE: The patient continues to feel moderately ill with intermittent abdominal pains and nausea. Not particularly worse or better today than yesterday. OBJECTIVE: Vital signs: He is afebrile. Vital signs are stable. General: He is alert and oriented x4. No acute distress. CV: Regular rate and rhythm. Respiratory: Bilateral breath sounds. No work of breathing. GI: Soft. Mild to moderate tenderness throughout. His CHESTER drains are serosanguineous. His lower midline open wound is draining cloudy serous and blood tinged fluid. The fascia appears to be intact. I repacked the wound today. LABORATORY: White blood cell count 15,000, hemoglobin 11. INR 4.2. Metabolic profile reviewed and stable. ASSESSMENT AND PLAN: A 81-year-old male status post drainage of intra-abdominal abscess for perforated viscus. He has a wound infection and an ileus. His NG tube continues to have a high output. He will continue NPO, IV antibiotics with gentamicin, local wound care, and nutritional support with Clinimix.
[2016-07-19] MEDS: GENTAMICIN IV SCH (15:00)
[2016-07-19] MEDS: NS IV SCH (15:00)
[2016-07-19] MEDS: MORPHINE IV PRN (18:00)
[2016-07-19] MEDS ORDERED: NS IV ONE (19:10)
[2016-07-19] MEDS ORDERED: VITAMIN K IV ONE (19:10)
--- NOTE | 2016-07-19 20:00 | PROGRESS NOTE ---
DATE: 07/19/2016 SUBJECTIVE: This morning, patient was largely unchanged. He continued to have some abdominal discomfort. He had not passed flatus, nor had he had a bowel movement. Minimal amount of bowel sounds were present. Throughout the day today, patient states his overall condition has been reasonably stable. He was able to sit in a chair for approximately 3 hours. This evening he is back in bed. He has not passed flatus. He denies fevers, chills, nausea, vomiting, shortness of breath, or chest discomfort. OBJECTIVE: Vital signs: Temperature maximum 98.3 degrees, heart rate 68-73, respiration 16-18, blood pressure 140-173/66-78. General: Well nourished, well developed, no acute distress. Cardiovascular: Regular rate and rhythm. No significant murmurs, rubs, or gallops. Pulmonary: Clear to auscultation anteriorly. Abdomen: Mildly distended. Postsurgical tenderness. Minimal bowel sounds are present. Extremities: Moves all extremities well. No significant clubbing or cyanosis. Patient has 1+ lower extremity edema bilaterally. Dermatologic: Evaluation reveals no evidence of a rash. LABORATORY DATA: White blood cell count 15.3, hemoglobin 11, hematocrit 36, platelet counts 288,000. PT 45.1, INR 4.19. Sodium 143, potassium 3.8, chloride 106, bicarb 32, BUN 30, creatinine 0.9, glucose 127, calcium 8.4, total bilirubin 0.34, total protein 5.2, albumin 2.3, alkaline phosphatase 74, AST 18, ALT 18. ASSESSMENT AND PLAN: 1. Perforated viscus with abscess formation-patient is postoperative day #5. Abscess ultimately grew Escherichia coli and Proteus. Each of these are sensitive to gentamicin which he is currently receiving. We will continue Flagyl as well for anaerobic coverage. At this point, I do not feel strongly that further investigation needs to be pursued at present time as his white blood cell count is trending downward and he remains afebrile. Should he not resolve his ileus in the next several days, we will need to consider repeat computed tomography scan evaluation. 2. Leukocytosis-patient continues to slowly improve. We will continue antibiotic coverage. 3. Anticoagulation-patient international normalized ratio continues to trend upwards despite no longer being treated with Coumadin therapy. I suspect this is secondary to his acute on chronic infection. We will provide a 2.5 mg of intravenous vitamin K tonight. We will check a PT and international normalized ratio in the a.m. 4. Urinary retention-this likely is secondary to either prostatic enlargement or medication induced. We will continue Henderson catheter placement for now. 5. Superficial wound infection-this was noted per Dr. Sibley. We will defer management. 6. Atrial fibrillation-patient is status post pacemaker ablation in the past. We will remain aware. 7. Hypertension-patient's blood pressure is slightly elevated. We will continue to monitor this. Once taking p.o., we will resume home medications. 8. Rheumatoid arthritis-we will remain aware. 9. Mild volume overload-at this point, the benefit of intravenous fluids outweighs the risk. He has no pulmonary compromise at present time. We will follow. 10. Disposition-at this point, patient continues to require [facility] care in the hospital setting. We will plan discharge home once appropriate.
[2016-07-20] MEDS: OFIRMEV 1000 MG/ISOTONIC SOLN 100 ML IV SCH ×4 (04:55→21:19)
[2016-07-20] MEDS: FLAGYL 500 MG/NS 100 ML IV SCH ×3 (05:18→18:26)
[2016-07-20 06:00] LABS: MANUAL DIFF NEEDED? NO
[2016-07-20 06:06] LABS: BASO% 0.3 % (0.0-0.8); EOS# 0.16 X1000 (0.0-0.7); HEMATOCRIT 35.4 % (42.0-52.0); HEMOGLOBIN 10.9 g/dL (14.0-18.0); IMM GRAN# 0.29 X1000 (0.0-0.04); IMM GRAN% 1.7 % (0.0-0.5); LYMPH# 1.71 X1000 (1.2-3.4); LYMPH% 10.2 % (20.5-51.1); MCH 30.6 PG (27-31); MCHC 30.8 g/dL (33-37); MCV 99.4 FL (81-99); MONO# 1.06 X1000 (0.11-0.59); MONO% 6.3 % (1.7-9.3); MPV 10.5 FL (7.4-10.4); NEUT% 80.5 % (42.2-75.2); PLT 299 X1000 (130-400); RBC 3.56 XMIL (4.7-6.1)
[2016-07-20 06:17] LABS: INR 1.84; PROTIME 19.6 Seconds (9.2-11.7)
[2016-07-20 06:27] LABS: AGAP 8; ALBUMIN 2.1 g/dL (3.5-5.0); ALKALINE PHOSPHATASE 71 U/L (32-122); BUN 33 mg/dL (8-22); CALCIUM 8.2 mg/dL (8.8-10.2); CHLORIDE 105 mmol/L (98-107); COSMO 300; GOT 17 U/L (10-34); GPT 16 U/L (10-44); POTASSIUM 3.9 mmol/L (3.5-5.1); SODIUM 147 mmol/L (136-145); TCO2 34 mmol/L (25-35); TOTAL BILIRUBIN 0.49 mg/dL (0.20-1.00)
[2016-07-20] MEDS: PERIDEX MT SCH ×2 (10:12→21:19)
[2016-07-20] MEDS: CLINIMIX E 4.25%-5% SOLUTION 1,000 ML IV SCH ×2 (10:13→13:47)
--- NOTE | 2016-07-20 15:31 | PROGRESS NOTE ---
DATE: 07/20/2016 SUBJECTIVE: He says he feels okay. He did a lot of therapy today and is tired. He also reports some flatus this morning. OBJECTIVE: He is afebrile. Vital signs are stable. NG tube output 1450, CHESTER drain number one 40 mL, number two 10 mL both serosanguineous. Urine output 875. General: He is alert and oriented x4, no acute distress. GI: Soft. Mildly tender throughout. The incision is intact superiorly. The inferior open portion continues to drain cloudy, blood-tinged fluid. No obvious bile, succus entericus or stool is seen. The fascia appears intact. IMAGING: A chest and abdominal x-ray shows no free air. There is actually a paucity of abdominal gas, there is some in the lower abdomen. LABORATORY: White blood cell count 16.8, hemoglobin 10.9, platelet count 299,000. INR 1.8. BUN 33, creatinine 1.0, albumin 2.1. ASSESSMENT AND PLAN: A 81-year-old male status post drainage of intraabdominal abscess likely from perforated viscus. He has a postoperative ileus and a wound infection. He malnourished and weak. We will continue physical therapy, Clinimix. We may need TPN through a PICC line if he does not improve over the weekend. He will continue on gentamicin. We await full return of bowel function. I will begin NG tube clamp trials. Dr. Borrego will be making rounds this weekend.
[2016-07-20] MEDS: NS IV SCH (16:00)
[2016-07-20] MEDS: GENTAMICIN IV SCH (16:00)
--- NOTE | 2016-07-20 16:24 | Diag Imaging Result Document ---
PROCEDURE NAME: FLAT/UPRIGHT ABD/1 VIEW CHEST - 07/20/2016 PORTABLE ABDOMINAL SERIES: FINDINGS: There is limitation of detail in the abdomen associated with the portable technique. There are multiple skin tamra from recent surgery. There are possible surgical drains at the right upper and lower quadrants. Bowel gas pattern appears nonspecific. Upright chest compared with 10/25/2014 shows within normal limits heart size. There is a transvenous cardiac pacemaker again seen. The lungs appear essentially clear. There is no substantial pleural effusion, or pneumothorax identified. IMPRESSION: Nonspecific bowel gas pattern. No evidence of acute cardiopulmonary disease.
--- NOTE | 2016-07-20 16:31 | PROGRESS NOTE ---
DATE: 07/20/2016 SUBJECTIVE: This morning, patient states he had 2 episodes of passing a small amount of flatus over the course of the last 12 hours. He continues to have a distended abdomen. His pain is controlled. He denies fevers, chills, nausea, vomiting, shortness of breath, or chest discomfort. OBJECTIVE: Vital signs: T-max is 98.6 degrees, heart rate 68-72, respirations 18-20, blood pressure 142 to 157 over 63 to 77. General: Well-nourished, well-developed, no acute distress. Cardiovascular: Regular rate and rhythm. No significant murmurs, rubs, or gallops. Pulmonary: Clear to auscultation anteriorly. Abdomen: Slightly distended. Postsurgical bowel sounds present, but diminished. Extremities: Moves all extremities well. No significant clubbing or cyanosis. Patient has 1+ lower extremity edema. Dermatologic: Evaluation reveals no evidence of rash. LABORATORY DATA: White blood cell count 16.83, hemoglobin 10.9, hematocrit 35.4 , platelet count 299,000. PT 19.6. INR is 1.84. Sodium 147, potassium 3.9, chloride 105, bicarb 34, BUN 33, creatinine 1.0, glucose 100, calcium 8.2, total bilirubin 0.49, total protein 5.0, albumin 2.1, alkaline phosphatase 71, AST 17, ALT 16. ASSESSMENT AND PLAN: 1. Perforated viscus with abscess formation-patient is postoperative day #6. Abscess cultures grew Escherichia coli and Proteus, both sensitive to gentamicin therapy. He currently is being treated appropriately. He has a postoperative ileus which has been slow to respond. As described above, patient did have minimal flatus overnight. For now, we will defer postsurgical management to Dr. Sibley. Should patient not develop improvement in the near future, we will consider CT scan evaluation. 2. Leukocytosis-this remains considerable, however patient is afebrile. We will continue gentamicin and Flagyl. Should the patient continued to develop increasing white blood cell count and/or fevers, we will plan CT scan evaluation. 3. Anticoagulation-patient's INR is slightly subtherapeutic at 1.84. Patient was given a modest amount of vitamin K yesterday secondary to an INR of 4.19. For now, we will follow. If this continues to trend downward, we will need to consider resuming Coumadin therapy once able. 4. Urinary retention-the patient continues to have a Henderson catheter. Because of his leukocytosis, we will check a urinalysis. We will remain aware that his urinary retention may be secondary to medications versus prostatic etiology. 5. Superficial wound infection-we will defer management to Dr. Sibley. 6. Atrial fibrillation-patient is status post pacemaker ablation in the past. We will remain aware. 7. Hypertension-patient's blood pressure is slightly elevated. At this point, we will continue to monitor. We will resume home medications once able to tolerate p.o. 8. Rheumatoid arthritis-we will remain aware. 9. Volume overload-patient has modest volume overload at present time. The benefits of IV fluids outweighs the risk. For now, we will follow. 10. Disposition-at this point, patient continues to require [facility] care in the hospital setting. We will plan discharge home with appropriate. MTDD
[2016-07-20 18:19] LABS: URINE CULTURE NEEDED? NO; URINE MICRO REVIEW NEEDED? NO; URINE SOURCE CATH
[2016-07-20 18:22] LABS: BILIRUBIN URINE NEGATIVE (NEGATIVE); BLOOD URINE MODERATE (NEGATIVE); COLOR YELLOW; GLUCOSE URINE NEGATIVE (NEGATIVE); LEUKOCYTES URINE NEGATIVE (NEGATIVE); NITRITE URINE NEGATIVE (NEGATIVE); PH URINE 8.5; PROTEIN URINE 50 mg/dL (NEGATIVE); SP GRAVITY URINE 1.027; TURBIDITY URINE CLEAR (CLEAR); UROBILINOGEN URINE 2 mg/dL (NORMAL)
[2016-07-20 18:23] LABS: UR EPITHELIAL CELLS <10 /HPF (<10); URINE BACTERIA NEGATIVE /HPF; URINE RBC TNTC /HPF (<10); URINE WBC <10 /HPF (<10)
[2016-07-21] MEDS: FLAGYL 500 MG/NS 100 ML IV SCH ×5 (00:24→23:49)
[2016-07-21] MEDS: PERIDEX MT SCH ×3 (02:17→22:15)
[2016-07-21 05:35] LABS: MANUAL DIFF NEEDED? NO
[2016-07-21 05:48] LABS: BASO% 0.3 % (0.0-0.8); EOS# 0.32 X1000 (0.0-0.7); EOS% 1.9 % (0.0-10.0); HEMATOCRIT 36.6 % (42.0-52.0); HEMOGLOBIN 11.2 g/dL (14.0-18.0); IMM GRAN# 0.42 X1000 (0.0-0.04); IMM GRAN% 2.5 % (0.0-0.5); LYMPH# 1.66 X1000 (1.2-3.4); MCH 30.1 PG (27-31); MCHC 30.6 g/dL (33-37); MCV 98.4 FL (81-99); MONO# 1.22 X1000 (0.11-0.59); MONO% 7.4 % (1.7-9.3); MPV 10.6 FL (7.4-10.4); NEUT% 77.9 % (42.2-75.2); PLT 350 X1000 (130-400); RBC 3.72 XMIL (4.7-6.1)
[2016-07-21] MEDS: ZOFRAN IV PRN (05:52)
[2016-07-21] MEDS: OFIRMEV 1000 MG/ISOTONIC SOLN 100 ML IV SCH ×4 (05:52→22:14)
[2016-07-21 05:56] LABS: INR 1.35; PROTIME 14.4 Seconds (9.2-11.7)
[2016-07-21 06:07] LABS: AGAP 7; ALBUMIN 2.1 g/dL (3.5-5.0); ALKALINE PHOSPHATASE 73 U/L (32-122); BUN 32 mg/dL (8-22); CALCIUM 9.1 mg/dL (8.8-10.2); CHLORIDE 103 mmol/L (98-107); COSMO 292; GOT 20 U/L (10-34); GPT 14 U/L (10-44); POTASSIUM 4.3 mmol/L (3.5-5.1); SODIUM 143 mmol/L (136-145); TCO2 33 mmol/L (25-35); TOTAL BILIRUBIN 0.53 mg/dL (0.20-1.00); TOTAL PROTEIN 5.3 g/dL (6.3-8.3)
--- NOTE | 2016-07-21 12:08 | PROGRESS NOTE ---
DATE: 07/21/2016 SUBJECTIVE: This morning, patient states that he is feeling somewhat improved. He has begun passing flatus. He has not had a bowel movement. He continues to have abdominal discomfort, although this is improving. He denies fevers, chills, nausea, vomiting, shortness of breath, or chest discomfort. His NG tube remain intact. He just completed a trial of clamping NG tube and has had minimal output. OBJECTIVE: T-max 98.6, heart rate 66-72, respirations 16-20. Blood pressure 143-168/69- 80.General: Well nourished, well developed, in no acute distress. Cardiovascular: Regular rate and rhythm. No significant murmurs, rubs, or gallops. Pulmonary: Clear to auscultation anteriorly. Abdomen: Postsurgical, nondistended. Positive bowel sounds. Extremities: Moves all extremities well. No significant clubbing, cyanosis. Patient has 1+ lower extremity edema bilaterally. Dermatologic: Evaluation revealed a clean and dry incision. The distal end has opened, but no evidence of infection is identified. LABORATORY DATA: White blood cell count 16.5,4 hemoglobin 11.2, hematocrit 36.6, platelet count 350,000. PT 14.4, INR is 1.35. Sodium 143, potassium 4.3, chloride 103, bicarb 33, BUN 32, creatinine 1.0. Glucose 102. Calcium 9.1, total bilirubin 0.53, total protein 5.3, albumin 2.1, alkaline phosphatase 73, AST 20, ALT 14. PT 14.4, INR is 1.35. ASSESSMENT AND PLAN: 1. Perforated viscus with abscess formation - patient is postoperative day #7. Abscess cultures grew E. coli and Proteus, both sensitive to gentamicin therapy. We will continue his current antibiotic coverage. He has experienced a postoperative ileus, however within the last 24 hours has passed flatus. His NG tube clamping trial has been successful this morning. The NG tube will be removed. We will defer the feeding to General Surgery's recommendations. 2. Leukocytosis - patient's white blood cell count remains modestly elevated despite gentamicin and Flagyl therapy. He remains afebrile. There has been no evidence of increasing white blood cell count. At this point, we will continue our current regimen. Should the patient's condition change, we will have a low threshold for CT scan evaluation. 3. Anticoagulation - the patient's INR is slightly subtherapeutic today. As his NG suction is concerning for possible blood, we will continue to hold Coumadin therapy. We will add prophylactic dosage of Lovenox. Once the patient's condition has improved, we will plan to resume Coumadin therapy. 4. Urinary retention - this likely is secondary to prostate etiology versus medications. For now, we will continue Henderson catheter placement. As his condition improves, we will plan a repeat trial of removal. 5. Superficial wound infection - on examination today, I do not see any evidence of significant infection at present time. We will continue his current antibiotic regimen. 6. Atrial fibrillation status post pacemaker ablation - the patient is asymptomatic at present time. We will plan to resume Coumadin therapy once able. 7. Hypertension - patient's blood pressure is modestly elevated. We will plan to resume his home antihypertensive regimen once able. 8. Rheumatoid arthritis - we will remain aware. 9. Mild volume overload - once again, we will remain aware. At this point, the benefits of IV fluids outweigh the risk. 10. Disposition - at this point, patient continues to require correction care in the hospital setting. We will plan discharge home once appropriate.
--- NOTE | 2016-07-21 14:01 | PROGRESS NOTE ---
DATE: 07/21/2016 SUBJECTIVE: He feels better. Started passing gas last night and much less abdominal distention. No nausea. He is tolerating NG tube clamps. Did have 1 residual last night and it was 300. It is becoming a little bit more blood-tinged this morning but it is dark and old. No fevers. No tachycardia. OBJECTIVE: Blood pressures have been normal. Abdomen: Is soft, nontender, nondistended. Incision is clean, dry, intact. There is an area where the tamra were removed in the inferior aspect. Fascia seems intact and granulating well with no cellulitis. NG tube has some old blood staining appearing in it. White count stable at 16, hematocrit stable 36. INR was normal. Creatinine of 1. ASSESSMENT/PLAN: A 81-year-old male with an intra-abdominal abscess of unclear etiology. He is doing well. Had return of bowel function now. We checked residual this morning and it is very low on his NG tube. We will discontinue this. Okay for ice chips and sips. I have added IV PPI b.i.d. and likely has some gastritis. We will need to monitor his hematocrit. I have talked to Dr. Gordon about holding his Coumadin and ensuring that he does not have an upper GI bleed of significance and will likely start his Coumadin in the day or two. It would be okay for prophylactic Lovenox in the meantime. Continue to follow along, but I think clinically he is gradually starting to improve.
[2016-07-21] MEDS: GENTAMICIN IV SCH (15:18)
[2016-07-21] MEDS: NS IV SCH (15:18)
[2016-07-21] MEDS: CLINIMIX E 4.25%-5% SOLUTION 1,000 ML IV SCH (16:49)
[2016-07-21] MEDS: PROTONIX IV SCH ×2 (16:53→22:14)
[2016-07-21] MEDS: SODIUM CHLORIDE 0.9% INJ SCH (16:53)
[2016-07-22] MEDS: CLINIMIX E 4.25%-5% SOLUTION 1,000 ML IV SCH ×3 (02:22→20:18)
[2016-07-22] MEDS: OFIRMEV 1000 MG/ISOTONIC SOLN 100 ML IV SCH ×4 (04:36→20:18)
[2016-07-22 05:50] LABS: BASO% 0.5 % (0.0-0.8); EOS# 0.35 X1000 (0.0-0.7); EOS% 2.6 % (0.0-10.0); HEMATOCRIT 35.6 % (42.0-52.0); IMM GRAN# 0.54 X1000 (0.0-0.04); LYMPH# 1.87 X1000 (1.2-3.4); MANUAL DIFF NEEDED? NO; MCH 30.5 PG (27-31); MCHC 30.9 g/dL (33-37); MCV 98.6 FL (81-99); MONO# 1.35 X1000 (0.11-0.59); MONO% 10.1 % (1.7-9.3); MPV 10.7 FL (7.4-10.4); NEUT% 68.8 % (42.2-75.2); PLT 372 X1000 (130-400); RBC 3.61 XMIL (4.7-6.1)
[2016-07-22 06:12] LABS: INR 1.53; PROTIME 16.3 Seconds (9.2-11.7)
[2016-07-22 06:18] LABS: AGAP 9; ALBUMIN 2.1 g/dL (3.5-5.0); ALKALINE PHOSPHATASE 73 U/L (32-122); BUN 33 mg/dL (8-22); CALCIUM 8.5 mg/dL (8.8-10.2); CHLORIDE 103 mmol/L (98-107); COSMO 292; GOT 17 U/L (10-34); GPT 12 U/L (10-44); POTASSIUM 3.8 mmol/L (3.5-5.1); SODIUM 143 mmol/L (136-145); TCO2 31 mmol/L (25-35); TOTAL BILIRUBIN 0.51 mg/dL (0.20-1.00); TOTAL PROTEIN 5.1 g/dL (6.3-8.3)
[2016-07-22] MEDS: FLAGYL 500 MG/NS 100 ML IV SCH ×3 (06:18→18:51)
--- NOTE | 2016-07-22 08:32 | PROGRESS NOTE ---
DATE: 07/22/2016 SUBJECTIVE: Mr. Morris feels better and making improvement. He is passing gas. No bowel movement yet. Minimal abdominal pain at this point. OBJECTIVE: Vital Signs: Afebrile, temperature 98.2 degrees, pulse 71, respirations 16, blood pressure 152/71. Lungs: Clear in all lung thomson. Cardiovascular Examination: Regular rhythm and rate. Abdomen: Nondistended. Is and Os: Urine output looks like it was about 300 mL. I am not sure if we got all of this to have accurate. Volume status looks good. Lab: White count 13,350, hematocrit 35, platelet count 372,000. Chemistries: Sodium 143, potassium 3.8, chloride 103, bicarb 31, BUN 33, creatinine 1. Albumin was 2.1. ASSESSMENT AND PLAN: 1. A 81-year-old male with intra-abdominal abscess. Unclear etiology. He is doing well. He has been passing gas. He is getting ice chips and continues to be on a proton pump inhibitor twice a day for some gastritis. Follow his hematocrit, is stable. Holding his Coumadin. Not sure if he has gastrointestinal bleed of significance. I think we can start the Coumadin back, make sure Dr. Borrego is okay with that. He is on prophylactic Lovenox at this time. 2. Leukocytosis. Patient's white blood cell count remains modestly elevated. He is on gentamicin and Flagyl. No evidence of increasing white blood cell count. 3. Anticoagulation. I think we will start him back on the Coumadin. Nasogastric suction, was concerning for possible blood so held the Coumadin therapy but I think we can start that back today. 4. Urinary retention, likely secondary to prostate etiology. Has a Henderson catheter. 5. Superficial wound infection. No evidence of significant infection at this time. Wound looks good. 6. Atrial fibrillation, status post pacemaker, ablation treatment. The patient remains in paced rhythm. 7. Hypertension. Blood pressure modestly elevated. Continue to follow. 8. Rheumatoid arthritis. Aware. 9. Patient with mild volume overload. Continue the present fluids. 10. Disposition. He will likely require custodial care for a couple more days. We will plan for discharge home when he is ready. We will initiate physical therapy. 11. Review of his orders. He is on Lovenox 40 mg subcutaneously every 24 hours, Protonix 40 mg intravenous every 12, Flagyl 500 mg intravenous every 6, on Clinimix. He is on gentamicin, he is getting 500 mg every 24 hours. Hematocrit is stable so will restart back the Coumadin.
[2016-07-22] MEDS: PERIDEX MT SCH ×2 (09:22→20:18)
[2016-07-22] MEDS: LOVENOX SUBQ SCH (09:22)
[2016-07-22] MEDS: SODIUM CHLORIDE 0.9% INJ SCH (09:23)
[2016-07-22] MEDS: PROTONIX IV SCH ×2 (09:23→20:18)
--- NOTE | 2016-07-22 09:52 | PROGRESS NOTE ---
DATE: 07/22/2016 SUBJECTIVE: The NG tube was removed yesterday. He continues to have bowel function. No nausea, no vomiting, and no real abdominal pain. OBJECTIVE: He is afebrile without tachycardia. His abdomen is soft, nontender, nondistended. CHESTER drainage is serosanguineous without significant purulence. His lower incision has packing in place but there is no cellulitis. The wound appears to be granulating. I reviewed his labs. White count is down to 13 which is the lowest it has been in the last several days. Hematocrit is stable at 35. ASSESSMENT/PLAN: This is a 81-year-old male status post exploratory laparotomy for intra- abdominal abscess of unclear etiology. He is doing well overall. I have him on twice a day proton pump inhibitor for likely some stress gastritis noted with some bloody nasogastric tube drainage. However, his hematocrits have been stable. He is on prophylactic Lovenox. I think it would not be unreasonable to resume Coumadin at this time, either today or tomorrow, and let this gradually come to therapeutic range. Otherwise, I will start clear liquids today and continue twice a day wet-to-dry dressings on his wound.
[2016-07-22] MEDS: GENTAMICIN IV SCH (16:24)
[2016-07-22] MEDS: NS IV SCH (16:24)
[2016-07-22] MEDS: COUMADIN PO SCH (20:18)
[2016-07-23] MEDS: FLAGYL 500 MG/NS 100 ML IV SCH ×4 (00:42→17:11)
[2016-07-23] MEDS: OFIRMEV 1000 MG/ISOTONIC SOLN 100 ML IV SCH ×5 (04:47→21:56)
[2016-07-23 05:39] LABS: INR 2.03; PROTIME 21.7 Seconds (9.2-11.7)
[2016-07-23] MEDS: SODIUM CHLORIDE 0.9% INJ SCH ×2 (08:58→21:56)
[2016-07-23] MEDS: LOVENOX SUBQ SCH (08:59)
[2016-07-23] MEDS: PERIDEX MT SCH ×2 (08:59→21:56)
[2016-07-23] MEDS: PROTONIX IV SCH ×2 (09:15→21:57)
[2016-07-23] MEDS: NS IV SCH (14:59)
[2016-07-23] MEDS: CLINIMIX E 4.25%-5% SOLUTION 1,000 ML IV SCH (14:59)
[2016-07-23] MEDS: GENTAMICIN IV SCH (14:59)
[2016-07-23] MEDS ORDERED: NORCO-10 PO PRN (17:29)
--- NOTE | 2016-07-23 19:13 | PROGRESS NOTE ---
DATE: 07/23/2016 SUBJECTIVE: The patient reports feeling fairly well. Better than he was a few days ago. He is now passing gas regularly. He is tolerating clear liquids without nausea or vomiting. OBJECTIVE: Vital signs: He is afebrile. Vital signs are stable. General: He is alert and oriented x4. No acute distress. Gastrointestinal: Soft, nondistended. Mild tenderness. His left CHESTER drain has only 5 mL of output, but it does have a purulent tinge. The right CHESTER drain is serosanguineous and 40 mL over the last 24 hours. The incision is clean, dry, and intact except for inferiorly with there is an open wound. The drainage is serosanguineous. The fascia appears to be intact, although it does appear to be a little soupy. LABORATORY: No laboratory data today except for INR of 2. ASSESSMENT AND PLAN: A 81-year-old male status post drainage of intra-abdominal abscess for perforated viscus. He has a local wound infection which we are treating with gauze packing. He remains on intravenous antibiotics. I have removed his right George-Ibrahim drain today. We will watch the drainage from the left side. We are going to advance his diet to soft today and hopefully wean him off of the Clinimix in the next day or so.
--- NOTE | 2016-07-23 21:07 | PROGRESS NOTE ---
DATE: 07/23/2016 SUBJECTIVE: The events of the last 24 hours were reviewed. In summary, patient has been passing flatus and having bowel movements. His NG tube has been removed. The patient has tolerated a clear liquid diet. Denies fevers, chills, nausea, vomiting, shortness of breath, or chest discomfort. Patient's energy level is very low. OBJECTIVE: Vital signs: T-max 98.4 degrees, heart rate 68 to 78, respirations 16 to 17, blood pressure. 119-142 over 59-75. General: Well nourished, well developed, no acute distress. Cardiovascular: Regular rate and rhythm. No significant murmurs, rubs, or gallops. Pulmonary: Clear to auscultation bilaterally. Abdomen: Soft, postsurgical tenderness, positive bowel sounds. Extremities: Moves all extremities well. No significant clubbing, cyanosis. Patient has 1+ lower extremity edema bilaterally. Dermatologic evaluation revealed no evidence of rash. LABORATORY DATA: PT 21.7. INR is 2.03. ASSESSMENT AND PLAN: 1. Perforated viscus with abscess formation-patient is postoperative day #9. Abscess cultures grew Escherichia coli and Proteus. He is adequately treated with gentamicin therapy. We will defer postsurgical management to Dr. Sibley. We will continue gentamicin therapy. 2. Leukocytosis-as of last evaluation, his white blood cell count was decreasing. We will check this tomorrow. Should this remain elevated or if patient develops fevers will have a low threshold for further investigation for possible abscess formation. 3. Anticoagulation-patient is therapeutic today. His Coumadin has been renewed. We will follow this. 4. Urinary retention-I suspect this may be secondary to morphine use versus prostatic enlargement. We will transition the patient from IV pain medications to [place]. We will a Henderson catheter removal trial within the next 24 hours. 5. Supervision wound infection-we will defer management to Dr. Sibley. We will continue antibiotic therapy. 6. Atrial fibrillation status post pacemaker ablation-patient is asymptomatic. 7. Hypertension-patient's blood pressure is modestly elevated. We will continue to follow clinically. 8. Rheumatoid arthritis-will remain aware. 9. Mild volume overload- the benefits of volume resuscitation outweighed the risk until this point. As patient is taking p.o., we will discontinue IV fluids. We will follow this. 10. Disposition-at this point patient continues to require residential care in the hospital setting. As patient's p.o. intake improves we will consider discharge home.
[2016-07-23] MEDS: COUMADIN PO SCH (21:56)
[2016-07-24] MEDS: FLAGYL 500 MG/NS 100 ML IV SCH ×4 (01:33→17:13)
[2016-07-24] MEDS: OFIRMEV 1000 MG/ISOTONIC SOLN 100 ML IV SCH ×2 (05:48→09:12)
[2016-07-24 06:02] LABS: BASO% 0.7 % (0.0-0.8); EOS% 2.2 % (0.0-10.0); HEMATOCRIT 35.9 % (42.0-52.0); HEMOGLOBIN 11.3 g/dL (14.0-18.0); IMM GRAN# 0.69 X1000 (0.0-0.04); LYMPH% 16.5 % (20.5-51.1); MANUAL DIFF NEEDED? YES; MCH 30.5 PG (27-31); MCHC 31.5 g/dL (33-37); MONO# 1.74 X1000 (0.11-0.59); MONO% 12.5 % (1.7-9.3); MPV 10.8 FL (7.4-10.4); NEUT% 63.1 % (42.2-75.2); PLT 429 X1000 (130-400)
[2016-07-24 06:32] LABS: AGAP 11; ALBUMIN 2.2 g/dL (3.5-5.0); ALKALINE PHOSPHATASE 76 U/L (32-122); BUN 21 mg/dL (8-22); CALCIUM 8.2 mg/dL (8.8-10.2); CHLORIDE 101 mmol/L (98-107); COSMO 285; GOT 19 U/L (10-34); GPT 10 U/L (10-44); POTASSIUM 3.7 mmol/L (3.5-5.1); SODIUM 141 mmol/L (136-145); TCO2 29 mmol/L (25-35)
[2016-07-24 06:54] LABS: INR 3.35
[2016-07-24 07:13] LABS: BANDS 3 % (0-1); EOS 1 % (1-10); LYMPHS 20 % (21-51); MONO 7 % (1-9)
[2016-07-24] MEDS: PROTONIX IV SCH ×3 (09:12→20:32)
[2016-07-24] MEDS: SODIUM CHLORIDE 0.9% INJ SCH ×2 (09:12→20:32)
[2016-07-24] MEDS: PERIDEX MT SCH ×2 (09:12→20:32)
[2016-07-24] MEDS: GENTAMICIN IV SCH (15:55)
[2016-07-24] MEDS: NS IV SCH (15:55)
--- NOTE | 2016-07-24 16:11 | PROGRESS NOTE ---
DATE: 07/24/2016 SUBJECTIVE: The patient denies any severe abdominal pain. He remains somewhat sore. He is ambulating daily. He is now eating some soft food without nausea or vomiting. He continues to pass gas but has not had a bowel movement. OBJECTIVE: He is afebrile. Vital signs are stable.General: Alert oriented x4 and appears chronically ill and weak but in no acute distress. CV: Regular rate and rhythm. Respiratory: Bilateral breath sounds. No work of breathing. GI: Soft, moderately tender all over. Incision is clean, dry, and intact superiorly. Inferiorly the open wound has serosanguineous drainage and some soupy appearing fascia. No peritoneal viscera are visualized. Left CHESTER drain with a small amount of purulent looking drainage. LABORATORY: White cell count 13.9, hemoglobin 11.3, hematocrit 35.9, platelet count 429,000. INR 3.3. Metabolic profile reviewed and unremarkable. ASSESSMENT AND PLAN: A 81-year-old male status post drainage of intra-abdominal abscess secondary to perforated viscus. He has a local wound infection, some urinary retention and overall weakness, deconditioning and malnutrition. He is increasing his diet and oral intake. We can wean him off of the Clinimix over the next 24 hours. His white count remains slightly elevated. I think if this does not decrease more tomorrow then a repeat CT scan will be ordered tomorrow. We will continue packing the wound for now but I am considering placing a wound VAC over the open portion of the wound pending my evaluation tomorrow. I want to go ahead and remove his catheter in the morning and give him a voiding trial.
--- NOTE | 2016-07-24 20:56 | PROGRESS NOTE ---
DATE: 07/24/2016 SUBJECTIVE: The patient's overall condition continues to very slowly improve. The patient was originally seen this morning. The patient states he slept well. He complains of some abdominal pain, but very tolerable. Over the course of the day patient tolerated each meal, although a modest amount. His fluid intake has improved. He walked with physical therapy. Patient states he did reasonably well with the exception of being weak. The patient denies fevers, chills, nausea, vomiting, shortness of breath, or chest discomfort. He continues to pass flatus. OBJECTIVE: Vital signs: T-max 98.5 degrees, heart rate 69-72, respirations 16-22, blood pressure 130-143 over 52-66. General: Well nourished, well developed, no acute distress. Cardiovascular: Regular rate and rhythm. No significant murmurs, rubs, or gallops. Pulmonary: Clear to auscultation bilaterally. Abdomen: Diffusely tender. Positive bowel sounds. Extremities: Moves all extremities well. No significant clubbing or cyanosis. Patient has 1+ lower extremity edema bilaterally. Dermatologic: Evaluation reveals no evidence of rash. LABORATORY DATA: White blood cell count 13.91, hemoglobin 11.3, hematocrit 35.9, platelet count 429,000, PT 36.0, INR 3.35. Sodium 141, potassium 3.7, chloride 101, bicarb 29, BUN 21, creatinine 1.1, glucose 106, calcium 8.2, total bilirubin 0.4, total protein 5.0, alkaline phosphatase 76, AST 19, ALT 10. ASSESSMENT AND PLAN: 1. Perforated viscus with abscess formation-patient is postoperative day #10. He continues to very slowly improve. He is passing flatus and having bowel movements. He does, however, have persistent leukocytosis which will be described below. For now, we will continue gentamicin as it effectively covers cultured bacteria including E. coli and Proteus. We will defer surgical management and wound care to Dr. Sibley. 2. Leukocytosis-patient's leukocytosis persists. We will continue current antibiotic coverage. I agree with Dr. Sibley's assessment that should his white count remain elevated, we will need to consider repeat CT scan evaluation. 3. Anticoagulation-the patient's INR is slightly supratherapeutic. We will hold his Coumadin therapy. 4. Urinary retention-I suspect this is secondary to prostatic enlargement versus morphine. We will plan a voiding trial in the a.m. The patient may require urologic consultation. 5. Superficial wound infection-we will defer management to Dr. Sibley. 6. Atrial fibrillation-patient is asymptomatic. He is anticoagulated. 7. Hypertension-patient's blood pressure remains modestly elevated. We will plan to resume home medications in the near future. 8. Rheumatoid arthritis-we will remain aware. 9. Disposition-at this point, patient continues to require [facility] care in hospital setting. We will plan discharge home once appropriate.
[2016-07-25] MEDS: FLAGYL 500 MG/NS 100 ML IV SCH ×3 (01:15→12:51)
[2016-07-25 05:37] LABS: MANUAL DIFF NEEDED? NO
[2016-07-25 05:43] LABS: BASO% 0.7 % (0.0-0.8); EOS# 0.25 X1000 (0.0-0.7); EOS% 1.9 % (0.0-10.0); HEMATOCRIT 34.3 % (42.0-52.0); HEMOGLOBIN 10.9 g/dL (14.0-18.0); IMM GRAN# 0.65 X1000 (0.0-0.04); IMM GRAN% 4.9 % (0.0-0.5); LYMPH# 2.83 X1000 (1.2-3.4); LYMPH% 21.4 % (20.5-51.1); MCH 30.6 PG (27-31); MCHC 31.8 g/dL (33-37); MCV 96.3 FL (81-99); MONO# 1.43 X1000 (0.11-0.59); MONO% 10.8 % (1.7-9.3); MPV 10.7 FL (7.4-10.4); NEUT% 60.3 % (42.2-75.2); PLT 457 X1000 (130-400); RBC 3.56 XMIL (4.7-6.1)
[2016-07-25 05:54] LABS: INR 3.14; PROTIME 33.7 Seconds (9.2-11.7)
[2016-07-25] MEDS: PROTONIX IV SCH ×3 (06:09→21:39)
[2016-07-25] MEDS: PERIDEX MT SCH ×2 (09:36→21:39)
[2016-07-25] MEDS: SODIUM CHLORIDE 0.9% INJ SCH ×2 (09:36→21:38)
--- NOTE | 2016-07-25 11:45 | Diag Imaging Result Document ---
PROCEDURE NAME: ABDOMEN/PELVIS W/WO CONTRAST - 07/25/2016 CT OF THE ABDOMEN WITH ORAL AND WITH AND WITHOUT INTRAVENOUS CONTRAST: FINDINGS: There is some free intra-abdominal gas. This is presumably related to recent laparotomy. There are still surgical skin clips in the mid abdomen. The lung bases are normal in appearance. There is a hiatal hernia. The gas collection which was demonstrated adjacent to the third portion of the duodenum in the mesenteric fat on 07/13/2016 is larger and slightly more defined although there is not a huge amount of fluid associated with this. This appears to be connected to a fluid collection extending to the upper portion of the sigmoid colon. There is a catheter entering the anterior left pelvic wall and extending through this area and into the area of the gas collection. There is no evidence of bowel obstruction. There is oral contrast throughout the colon. There is no oral contrast present in the incision or in the abscess cavity described above adjacent to the duodenum nor in the apparent fistulous tract extending to the sigmoid colon. The spleen, adrenal glands, pancreas, and kidneys are stable in appearance. There is a lucent lesion present inferiorly in the right hepatic lobe measuring 2.5 cm in diameter which is not visible on the previous study, however, this may be due to the lack of IV contrast on the previous exam. It is most visible on the portal venous phase. There is a cyst posteriorly in the left hepatic lobe which has not changed significantly since the previous study. The gallbladder is more distended than on the previous examination. CT OF THE PELVIS WITH ORAL AND WITH AND WITHOUT INTRAVENOUS CONTRAST: FINDINGS: There is still inflammatory change around the proximal sigmoid colon consistent with diverticulitis. There is some gas in the urinary bladder which is probably due to instrumentation. No free fluid is present. IMPRESSION: 1. Diverticulitis with abscess in the mesenteric fat as described. This is probably at least partially drained by the catheter which is present exiting the left pelvic wall anteriorly. 2. Residual pneumoperitoneum status-post laparotomy. 3. Right hepatic lobe lesion as described above. Comparison with previous contrast examinations or ultrasounds if they exist would be helpful in this regard.
[2016-07-25] MEDS: NS IV SCH (15:49)
[2016-07-25] MEDS: GENTAMICIN IV SCH (15:49)
--- NOTE | 2016-07-25 16:49 | PROGRESS NOTE ---
DATE: 07/25/2016 SUBJECTIVE: The patient has felt fairly exhausted and wiped out today and somewhat nauseated. However, he has passed several bowel movements which helped him feel better in that regard. OBJECTIVE: Vital signs: He is afebrile. Vital signs are stable. General: Alert and oriented x4. No acute distress. Gastrointestinal: Soft, mildly distended. Incision is stable as it was described yesterday. His CHESTER drain has some cloudy fluid in it. LABORATORY: White blood cell count 13,000. Hemoglobin 10.9. IMAGING: CT of the abdomen and pelvis was reviewed and there is a residual area of abscess in the mid abdomen near the drain in between the sigmoid colon and duodenum. There also is an ill- defined right hepatic lobe lesion. ASSESSMENT AND PLAN: A 81-year-old male with intra-abdominal abscess. The etiology is unclear whether it was perforated duodenum or diverticulitis in the sigmoid colon. In any case, there is no evidence of any ongoing perforation. He has some residual abscess which is partially being drained. At this point, reoperating would seem to be too risky. I think continued drainage and antibiotics for several more weeks is in order. We are going to consult Dr. Bazan as well as Home Health and hopefully target discharge by the weekend if he is feeling well enough to do so.
--- NOTE | 2016-07-25 17:50 | CONSULTATION ---
DATE OF CONSULTATION: 07/25/2016 CONCLUSION: Patient is status post drainage of an intra-abdominal abscess secondary to diverticulitis. Also, the patient had repair of an incarcerated hernia. A culture from the abscess is growing Escherichia coli and Proteus. There also is seen on the latest CAT scan a right lobe of the liver lesion, the etiology of which is uncertain. The patient has allergies to penicillin and cephalosporin antibiotics. RECOMMENDATIONS: I have discontinued gentamicin and Flagyl and instead have put the patient on a combination of aztreonam and clindamycin. Some of the side effects of the antibiotics, including rash and diarrhea have been explained to the patient who agrees with treatment. DISCUSSION: The patient was admitted to the hospital with abdominal pain. An initial CT scan showed free air in the abdomen and an incarcerated umbilical hernia. The patient underwent surgery performed by Dr. Sibley who found diverticular and mesenteric abscesses which were drained. Also, the incarcerated hernia was repaired. Postoperatively, the patient's temperature has been down, but his white count remains elevated. Overall, the patient feels like he is doing better. He is taking food by mouth and he is passing urine and stool. LABORATORY STUDIES: Show a CBC with a white count of 13,200, hemoglobin 10.9, and platelet count 457,000. Creatinine is 1.1. GFR is greater than 60. Liver function studies are normal. His urine cultures are negative. Intra-abdominal cultures taken at surgery grew E. coli and Proteus. Anaerobic cultures were negative. A Gram stain of the material found at surgery showed gram negative rods and gram positive cocci. PAST MEDICAL HISTORY/REVIEW OF SYSTEMS: Eyes and ears: Patient has decreased hearing, but his vision is okay. Respiratory: Patient does have dyspnea on exertion. He is not coughing. Cardiovascular: No chest pains or palpitations. GI: The patient is taking food by mouth. He has not been vomiting. He has passed stool as mentioned above. Genitourinary: No dysuria or flank pain. Patient had a Henderson catheter in, but this was removed today. Neurologic: No motor or sensory loss. No seizures. Bones, joints, muscles: The patient is not complaining of any joint pain or myalgias. Neurologic: No motor or sensory loss. No seizures. Endocrine: Patient does not have diabetes or thyroid disease. Hematologic: The patient is on Coumadin, so he does bleed easier. He does not have a history of anemia. The remainder of the patient's review of systems was completed and was negative. PREVIOUS HOSPITALIZATIONS AND OPERATIONS: He has been admitted before for diverticulitis. 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 He has had the pacemaker replaced. He once was admitted with a GI bleed. He has had a vasectomy, prostate surgery. The surgery was for benign prostatic hypertrophy. Patient has had a left total hip arthroplasty. MEDICAL DISEASES: Positive for benign prostatic hypertrophy, rheumatoid arthritis, hypertension and atrial fibrillation. As regards the patient's rheumatoid arthritis, he is on methotrexate, thus making him somewhat of an immunocompromised host. INFECTIOUS DISEASE HISTORY: Positive for pneumonia. FAMILY HISTORY: Positive for diabetes mellitus, hypertension, myocardial infarction and brain aneurysm. SOCIAL HISTORY[place] . He occasionally drinks alcoholic beverages. He does not smoke or abuse drugs. He has a dog as a pet. He is a retired educator. ALLERGIES: His chart lists allergies to cephalosporins manifested by nausea and vomiting, to penicillins manifested by hives, and to ibuprofen manifested by GI bleeding. HOME MEDICATIONS: Aspirin, folic acid, methotrexate and Coumadin. PHYSICAL EXAMINATION: Vital signs: Temperature is 98.2 degrees, pulse is 70, respirations 20, blood pressure 149/56. Generally: This is a somewhat ill-appearing, elderly male. He is in no acute distress. Head, eyes, ears, nose, and throat: He has decreased hearing. He can see near objects. No drainage is noted from the nose or ears. In the patient's mouth, there were no white patches. Neck: No meningismus. Thorax: No increased AP diameter of the chest. The patient has a pacemaker present on the left side. Lungs: Clear to auscultation. Cardiovascular: Regular heart rate. Abdomen: Soft and the midline incision is intact. A drain is in place. Neurologic: Patient is awake. He can move his extremities. There is no tremor. His sensation is intact to touch. His memory, as regarding his medical history was slightly decreased. Extremities: The patient does have some leg edema, but the legs are not erythematous or tender. Thank you for the consult.
[2016-07-25] MEDS: CLEOCIN PO SCH (18:52)
[2016-07-25] MEDS: AZACTAM 2 GM in NS 100 ML IV SCH (18:52)
--- NOTE | 2016-07-25 19:15 | PROGRESS NOTE ---
DATE: 07/25/2016 SUBJECTIVE: The patient was originally seen this morning. At that time, patient states he rested well. Over the course of the day, patient states he has done reasonably well. He does note having significant fatigue. His p.o. intake has been reasonable. He did experience some nausea at lunch, however, this occurred after drinking contrast for his CT scan. In this regard, his CT scan returned suggesting diverticulitis with abscess in the mesenteric fat partially drained by the catheter, which is present exiting the left pelvic wall anteriorly. Residual pneumoperitoneum was identified. There was a right hepatic lobe lesion noted of unknown significance. The patient currently denies fevers, chills, shortness of breath, chest pains, or palpitations. OBJECTIVE: Vital signs: Temperature maximum 98.7 degrees, heart rate 69-77, respirations 14-20, blood pressure 124-149/55-62. General: Well nourished, well developed, in no acute distress. Cardiovascular: Regular rate and rhythm. No significant murmurs, rubs, or gallops. Pulmonary: Clear to auscultation bilaterally. Abdomen: Soft, diffusely tender. Postsurgical, positive bowel sounds. Extremities: Moves all extremities well. No significant clubbing, cyanosis, or edema. Dermatologic: Evaluation reveals no evidence of rash. LABORATORY DATA: White blood cell count 13.20, hemoglobin 10.9, hematocrit 34.3, platelet count 457,000. PT 33.7, INR 3.1. ASSESSMENT AND PLAN: 1. Perforated viscus with abscess formation-patient is postoperative day #11. Patient continues to very slowly improve clinically. Computed tomography scan today suggest residual abscess adjacent to the sigmoid colon. I have discussed this with Dr. Sibley. At this point, we will pursue nonsurgical intervention. We will consult Dr. Bazan for further recommendations for prolonged antibiotic coverage. We will continue to follow patient's clinical course closely. 2. Leukocytosis-patient continues to have a moderate leukocytosis. He is afebrile. We will address residual abscess as described above. 3. Anticoagulation-patient's international normalized ratio is slightly supratherapeutic. We will continue to hold Coumadin therapy. 4. Urinary retention-patient's Henderson catheter was removed this morning. We will monitor urine output closely. 5. Superficial wound infection-we will defer management to Dr. Sibley. 6. Atrial fibrillation-patient has had a pacemaker, ablation in the past. He is asymptomatic. 7. Hypertension-patient's blood pressure is reasonably controlled. We will continue to follow. 8. Rheumatoid arthritis-we will remain aware. 9. Disposition-at this point, patient continues to require fpc care in the hospital setting. Should the patient continued to slowly improve and arrangements for IV antibiotics made, we will consider discharge home later this week.
[2016-07-26] MEDS: CLEOCIN PO SCH ×3 (02:39→18:36)
[2016-07-26] MEDS: AZACTAM 2 GM in NS 100 ML IV SCH ×3 (02:39→18:36)
[2016-07-26 05:39] LABS: MANUAL DIFF NEEDED? NO
[2016-07-26 05:43] LABS: BASO% 0.4 % (0.0-0.8); EOS# 0.25 X1000 (0.0-0.7); EOS% 1.3 % (0.0-10.0); HEMOGLOBIN 10.9 g/dL (14.0-18.0); IMM GRAN# 0.46 X1000 (0.0-0.04); IMM GRAN% 2.4 % (0.0-0.5); LYMPH# 2.77 X1000 (1.2-3.4); LYMPH% 14.6 % (20.5-51.1); MCH 30.8 PG (27-31); MCHC 32.1 g/dL (33-37); MONO# 1.86 X1000 (0.11-0.59); MONO% 9.8 % (1.7-9.3); MPV 10.8 FL (7.4-10.4); NEUT% 71.5 % (42.2-75.2); PLT 479 X1000 (130-400); RBC 3.54 XMIL (4.7-6.1)
[2016-07-26 06:02] LABS: AGAP 12; ALBUMIN 2.3 g/dL (3.5-5.0); ALKALINE PHOSPHATASE 84 U/L (32-122); BUN 17 mg/dL (8-22); CALCIUM 7.8 mg/dL (8.8-10.2); CHLORIDE 100 mmol/L (98-107); COSMO 275; GOT 41 U/L (10-34); GPT 22 U/L (10-44); POTASSIUM 3.7 mmol/L (3.5-5.1); SODIUM 137 mmol/L (136-145); TCO2 25 mmol/L (25-35); TOTAL BILIRUBIN 0.49 mg/dL (0.20-1.00)
[2016-07-26 06:07] LABS: INR 3.34; PROTIME 35.8 Seconds (9.2-11.7)
--- NOTE | 2016-07-26 09:05 | PROGRESS NOTE ---
DATE: 07/26/2016 PRESENT ILLNESS: The patient is status post drainage of a diverticular abscess and repair of an incarcerated ventral hernia. Patient does have leukocytosis. He also had been running a low- grade fever. MEDICATIONS: I switched the patient yesterday to a combination of aztreonam and clindamycin. PHYSICAL EXAMINATION: Vital Signs: Temperature is 98.4 degrees, pulse 70, respirations 14, blood pressure 134/59. General: This is a somewhat ill-appearing, elderly male. He is in no acute distress. Lungs: Clear to auscultation. Cardiovascular: Regular heart rate. Abdomen: Soft and not tender. The patient's abdominal incision is intact. The patient has 1 drain remaining in his abdomen. LAB AND X-RAY: Today the patient's white count has gotten higher; it is 18,970. Hemoglobin 10.9 and platelet count 479,000. The patient's creatinine is 1.1 with a GFR of 60. Liver function studies are normal. The patient's culture from his abdomen grew E. coli and Proteus mirabilis. ASSESSMENT AND PLAN: I plan to continue with the current antibiotics. He is feeling good and hopefully by tomorrow his white count will start coming down instead of going higher. The patient's comorbidities include mainly that he is elderly.
[2016-07-26] MEDS: SODIUM CHLORIDE 0.9% INJ SCH (09:10)
[2016-07-26] MEDS: PROTONIX IV SCH ×2 (09:10→21:03)
[2016-07-26] MEDS: PERIDEX MT SCH ×2 (09:11→21:03)
[2016-07-27] MEDS: AZACTAM 2 GM in NS 100 ML IV SCH ×3 (01:34→18:39)
[2016-07-27] MEDS: CLEOCIN PO SCH ×3 (01:34→18:39)
--- NOTE | 2016-07-27 03:37 | PROGRESS NOTE ---
DATE: 07/26/2016 SUBJECTIVE: The patient continues to very slowly improve. Unfortunately, a PICC line was not able to be placed today secondary to a supratherapeutic INR. Otherwise, throughout the day patient doing reasonably well. His p.o. intake is slowly improving. He continues to have abdominal discomfort, however, nonlimiting. He is passing flatus and having bowel movements. Denies fevers, chills, nausea, vomiting, shortness of breath, or chest discomfort. OBJECTIVE: Vital Signs: T-max 99.8 degrees, heart rate 69-71, respirations 14-22, blood pressure 134-143/59-63. General: Well nourished, well developed, no acute distress. Cardiovascular: Regular rate and rhythm. No significant murmurs, rubs, or gallops. Pulmonary: Clear to auscultation bilaterally. Abdomen: Soft. Postoperative tenderness diffusely. Positive bowel sounds. Extremities: Moves all extremities well. No significant clubbing or cyanosis. Patient has 1+ lower extremity edema bilaterally. Dermatologic: Evaluation revealed no evidence of rash. LABORATORY DATA: White blood cell count 18.97, hemoglobin 10.9, hematocrit 34.0, platelet count is 479,000. PT 35.8, INR is 3.34. Sodium 137, potassium 3.7, chloride 100, bicarb 25, BUN 17, creatinine 1.1, and glucose 91, calcium 7.8, total bilirubin 0.49, total protein 5.0, albumin 2.3, alkaline phosphatase 84, AST 41, ALT 42. ASSESSMENT AND PLAN: 1. Perforated viscus with abscess formation. Patient is postoperative day #12. CT scan yesterday suggested a residual abscess adjacent to the sigmoid colon. At this point, nonsurgical intervention has been recommended. I appreciate Dr. Bazan' consultation for antibiotic coverage. We will continue to follow this closely. 2. Leukocytosis. Interestingly, with change in antibiotics patient's white blood cell count increased. At this point, I do not feel any further adjustments are necessary. We will follow this. Should patient began spiking fever, we will consider further investigation. 3. Anticoagulation. Patient is slightly supratherapeutic. At this point, we will follow. We will continue to hold Coumadin therapy. 4. Urinary retention. Patient's catheter has been removed. He tolerated this well. 5. Superficial wound infection. Dr. Sibley has placed a wound VAC. We will defer management. 6. Atrial fibrillation. Patient is status post atrial fibrillation ablation. He is asymptomatic. 7. Hypertension. Patient's blood pressure is borderline. We will continue to follow this. 8. Rheumatoid arthritis. We will remain aware. 9. Disposition: At this point, the patient continues to require shelter care in the hospital setting. Once a PICC line has been placed and outpatient antibiotic intervention has been pursued, we will plan discharge home.
[2016-07-27 05:34] LABS: MANUAL DIFF NEEDED? NO
[2016-07-27 05:38] LABS: BASO% 0.4 % (0.0-0.8); EOS# 0.25 X1000 (0.0-0.7); EOS% 1.4 % (0.0-10.0); HEMATOCRIT 32.3 % (42.0-52.0); HEMOGLOBIN 10.2 g/dL (14.0-18.0); IMM GRAN# 0.65 X1000 (0.0-0.04); IMM GRAN% 3.6 % (0.0-0.5); LYMPH# 2.51 X1000 (1.2-3.4); LYMPH% 13.8 % (20.5-51.1); MCH 30.4 PG (27-31); MCHC 31.6 g/dL (33-37); MCV 96.1 FL (81-99); MONO# 2.16 X1000 (0.11-0.59); MONO% 11.9 % (1.7-9.3); MPV 10.6 FL (7.4-10.4); NEUT% 68.9 % (42.2-75.2); PLT 471 X1000 (130-400); RBC 3.36 XMIL (4.7-6.1)
[2016-07-27 06:09] LABS: INR 2.78; PROTIME 29.8 Seconds (9.2-11.7)
[2016-07-27 06:15] LABS: ALBUMIN 2.2 g/dL (3.5-5.0); CALCIUM 7.5 mg/dL (8.8-10.2); POTASSIUM 3.6 mmol/L (3.5-5.1); TOTAL BILIRUBIN 0.57 mg/dL (0.20-1.00); TOTAL PROTEIN 5.1 g/dL (6.3-8.3)
[2016-07-27] MEDS ORDERED: FLOMAX PO ONE (08:33)
--- NOTE | 2016-07-27 08:46 | PROGRESS NOTE ---
DATE: 07/27/2016 For yesterday's progress note, please see the written note on the chart. SUBJECTIVE: Today the patient says he feels fair. He had some trouble voiding after his catheter was removed. It was put back in and taken back out, and we are awaiting him to avoid again this morning. Otherwise, he is doing okay. He has had a bowel movement. OBJECTIVE: Vital Signs: He is afebrile. Vital signs are stable. CHESTER drain with 15 mL. General: He is alert and oriented x4. No acute distress. GI: Soft. Moderately tender throughout. This is stable. Incision is clean, dry and intact without erythema, save for the open wound on the lower aspect. There is a wound VAC intact now with a good seal. LABORATORY: White blood cell count remains elevated at 18,000, hemoglobin 10.2, INR 2.8. Metabolic profile reviewed and stable. ASSESSMENT AND PLAN: A 81-year-old male status post drainage of intra-abdominal abscess possibly from perforated diverticulitis versus other small bowel perforation. He has some persistent infection. Dr. Bazan is following and making antibiotic recommendations. I think re operating at this point is particularly risky and would favor further antibiotics and drainage. We will try to get accelerated wound closure with negative pressure dressing. He is scheduled to get a PICC line once the INR is lower. He has had urinary retention and may end up needing to go home with a Henderson catheter and leg bag. I want the patient to follow up with me next week after he is at home, and hopefully we could have him discharged this weekend. My partners will be making rounds this weekend.
[2016-07-27] MEDS: SODIUM CHLORIDE 0.9% INJ SCH (10:00)
[2016-07-27] MEDS: PROTONIX IV SCH (10:00)
[2016-07-27] MEDS: PERIDEX MT SCH (10:01)
[2016-07-27] MEDS: DILAUDID IV PRN (10:32)
--- NOTE | 2016-07-27 10:48 | PROGRESS NOTE ---
DATE: 07/27/2016 PRESENT ILLNESS: The patient is status post drainage of a diverticular abscess and repair of an incarcerated hernia. The patient still had some of the abscess remaining in his abdomen. He has a fairly large leukocytosis. He has been running a low-grade fever. MEDICATIONS: The patient now has been on aztreonam and clindamycin for 2 days. PHYSICAL EXAMINATION: Vital Signs: Temperature is 98 degrees, pulse 69, respirations 16, blood pressure 141/66. General: This is a somewhat ill-appearing, elderly male. He is in no acute distress. Lungs: Clear to auscultation. Cardiovascular: Irregular heart rate. Chest: The patient has a pacemaker present. The site is not erythematous or swollen. Abdomen: Soft and not tender. The VAC and drain are in place. The patient's incision is intact. LAB AND X-RAY: CBC today shows a white count of 18,150, hemoglobin 10.2, and platelet count 471,000. Creatinine is 1.3. GFR is 53. Liver function studies are normal. There is no new radiographic study. ASSESSMENT AND PLAN: I plan to continue the patient's current antibiotics. When the patient's pro time will permit, a PICC will be placed. [facility] has been consulted to see the patient. I plan to see the patient back in my office in 2 weeks, at which time most likely will get another CT scan of the abdomen. I have electronically produced a prescription for clindamycin, which the patient will be taking by mouth when he goes home. The patient's comorbidity is that he is elderly.
--- NOTE | 2016-07-27 20:29 | PROGRESS NOTE ---
DATE: 07/27/2016 SUBJECTIVE: The patient's overall condition continues to slowly improve. Unfortunately, patient's INR remains elevated above acceptable PICC line insertion level. He continues IV antibiotics as prescribed by Dr. Bazan. He is tolerating this well. His p.o. intake is slowly improving. His energy level is slowly improving. He does continue to have some abdominal discomfort, however this is non-limiting. He does have a wound VAC placed on his superficial wound infection. He continues to pass flatus and have bowel movements. He denies fevers, chills, nausea, vomiting, shortness of breath, or chest discomfort. Over the course of the day, unfortunately patient again developed urinary retention. A Henderson catheter has been placed. OBJECTIVE: Vital signs: T-max. 99.0, heart rate 69-72, respirations 16-22, blood pressure 135 to 143 over 58 to 66. General: Well nourished, well developed, no acute distress. Cardiovascular: Regular rate and rhythm. No significant murmurs, rubs, or gallops. Pulmonary: Clear to auscultation bilaterally. Abdomen: Soft. Postoperative tenderness, positive bowel sounds. Extremities: Moves all extremities well. No significant clubbing, cyanosis, or edema. Dermatologic: Evaluation reveals a dressed incision. Otherwise no rash. LABORATORY DATA: White blood cell count 18.15, hemoglobin 10.2, hematocrit 32.3, platelet count 471,000. PT 29.8, INR is 2.78. Sodium 138, potassium 3.6, chloride 100, bicarb 26, BUN 19, creatinine 1.3, glucose 106, calcium 7.5, total bilirubin 0.59, total protein 5.1, albumin 2.2, alkaline phosphatase 77, AST 34, ALT 19. ASSESSMENT AND PLAN: 1. Perforated viscus with abscess formation-patient is postoperative day #13. Recent CT scan suggested residual abscess adjacent to the sigmoid colon. At this point, risk of surgical intervention outweighs the benefits. The patient is currently being treated with antibiotic therapy as directed by Dr. Bazan. Clinically, he is slowly improving. 2. Leukocytosis-the patient's white blood cell count remains elevated. He is afebrile. For now, we will follow. 3. Anticoagulation-patient INR is 2.78. We will continue to hold patient's Coumadin. We will plan PICC line placement once able. 4. Urinary retention-unfortunately, patient has again developed urinary retention. We will resume a Henderson catheter this evening. We will consult urology. We will continue Flomax therapy. 5. Superficial wound infection-patient is being treated with a wound VAC as directed by Dr. Sibley. We will defer management. 6. Atrial fibrillation-patient is status post atrial fibrillation and pacemaker implantation in the past. He is asymptomatic. 7. Hypertension-patient's blood pressure is reasonably controlled. We will continue to follow this. 8. Rheumatoid arthritis-we will remain aware. 9. Disposition-patient continues to require group home care in the hospital setting. Once patient's PICC line is placed and urinary retention has been addressed, we will consider discharge home. For now, we will continue physical therapy and antibiotic coverage.
[2016-07-28 05:40] LABS: BASO% 0.6 % (0.0-0.8); EOS# 0.34 X1000 (0.0-0.7); EOS% 2.1 % (0.0-10.0); HEMATOCRIT 31.6 % (42.0-52.0); HEMOGLOBIN 9.9 g/dL (14.0-18.0); IMM GRAN# 0.85 X1000 (0.0-0.04); IMM GRAN% 5.2 % (0.0-0.5); LYMPH# 2.26 X1000 (1.2-3.4); LYMPH% 13.7 % (20.5-51.1); MANUAL DIFF NEEDED? YES; MCH 30.1 PG (27-31); MCHC 31.3 g/dL (33-37); MONO# 1.89 X1000 (0.11-0.59); MONO% 11.5 % (1.7-9.3); MPV 10.6 FL (7.4-10.4); NEUT% 66.9 % (42.2-75.2); PLT 453 X1000 (130-400); RBC 3.29 XMIL (4.7-6.1)
[2016-07-28 05:56] LABS: POTASSIUM 3.5 mmol/L (3.5-5.1)
[2016-07-28] MEDS: PERIDEX MT SCH ×3 (06:51→21:51)
[2016-07-28] MEDS: PROTONIX IV SCH ×3 (06:51→21:51)
[2016-07-28] MEDS: AZACTAM 2 GM in NS 100 ML IV SCH ×3 (06:52→21:51)
[2016-07-28] MEDS: CLEOCIN PO SCH ×3 (06:52→21:51)
[2016-07-28 07:12] LABS: LYMPHS 8 % (21-51); MONO 8 % (1-9)
[2016-07-28 07:13] LABS: HYPOCHROM 1+
[2016-07-28 07:36] LABS: INR 1.94; PROTIME 20.7 Seconds (9.2-11.7)
[2016-07-28] MEDS: SODIUM CHLORIDE 0.9% INJ SCH (09:08)
[2016-07-28] MEDS ORDERED: NS 250 ML ONE (09:14)
[2016-07-28] MEDS: FLOMAX PO SCH ×2 (09:29→21:51)
--- NOTE | 2016-07-28 11:20 | Diag Imaging Result Document ---
PROCEDURE NAME: CHEST-PORTABLE - 07/28/2016 PORTABLE CHEST: COMPARISON: 07/20/2016. FINDINGS: Heart size appears upper normal and stable. There is transvenous cardiac pacemaker again seen. The lungs appear clear. There is no pleural effusion or pneumothorax identified. There has been interval insertion of a PICC line from the left. The tip of the PICC line is at the expected location of the distal superior vena cava. IMPRESSION: Tip of PICC line at distal superior vena cava. No other acute changes.
--- NOTE | 2016-07-28 11:52 | PROGRESS NOTE ---
DATE: 07/28/2016 SUBJECTIVE: Mr. Morris is postoperative day #14 following a perforated viscus with abscess formation. Mr. Morris is sitting up. He is alert, jovial and easily arousable. His appetite is not great, but he is trying to eat as much as possible. He has not had any nausea, vomiting or worsening abdominal pain with meals. He is passing gas and is having bowel movements. A CT scan of the abdomen and pelvis on 07/25/2016 demonstrated diverticulitis with abscess in the mesenteric fat, which is partially drained by catheter. He is on intravenous antibiotics per Dr. Bazan. His INR is still supratherapeutic; his INR was 1.94. Once the INR is sub therapeutic, a PICC line will be placed for home IV antibiotic therapy. His blood pressure remains well controlled. He denies any chest pain, palpitations, or anginal equivalents. OBJECTIVE: Vital signs: Temperature 98.4 degrees, pulse 70, respirations 20, BP 145/62. CV: Regular rate and rhythm. Lungs: Clear. Abdomen: Generally soft with some residual postoperative tenderness. He has got good bowel sounds. LABORATORY STUDIES: Various laboratory studies were obtained. A CBC demonstrated a white count of 16.4, hemoglobin 9.9, hematocrit 31.6, and a platelet count of 453,000. Electrolytes demonstrate the following: Sodium 136, potassium 3.5, chloride 98, CO2 26, BUN 19, creatinine 1.2, and glucose 103. His INR was 1.94. ASSESSMENT AND PLAN: 1. Diverticular abscess and repair of an incarcerated hernia. His most recent CT still shows some residual abscess. We will continue broad-spectrum antibiotics, including an oral clindamycin. Once his INR is below 1.5, we will consult the PICC team for PICC line placement. 2. Paroxysmal atrial fibrillation. He remains in normal sinus rhythm. Heart rate is well controlled. We will continue to hold Coumadin in anticipation of a PICC line placement. 3. Hypertension. Blood pressure is stable. We will continue his current regimen of medication.
--- NOTE | 2016-07-28 14:20 | PROGRESS NOTE ---
DATE: 07/28/2016 Mr. Morris is a 81-year-old white male, patient of Dr. Mart Barreto. He has been hospitalized since 07/13/[address] a [address] scan which documented a pneumoperitoneum and it was a question of whether he had a perforated diverticulum. He had a midabdominal abscess also described at that CT scan. That abscess has been drained. He still has a drain intraabdominally. Repeat CT scan was done on 07/25/2016 which showed evidence of diverticulitis with abscess which has been partially drained by a catheter and there was residual pneumoperitoneum status post laparotomy. It has been decided to continue to treat him conservatively with IV antibiotics and drainage. Dr. Bazan, our Infectious Disease physician, is also seeing him and changed his antibiotics to aztreonam and clindamycin. It appears the clinically he is slowly improving. His heart rate is 70, blood pressure 145/62, O2 saturation 97%. He has no work of breathing. He is afebrile on the antibiotics as described above. His white blood cell count has gone from 18 the 16 over the last 24 hours. His hematocrit is 32%. He still has an intraabdominal drain left side. His BUN and creatinine are 19 and 1.2 his abdomen is mostly soft. He still has a Henderson catheter tube in place because of an enlarged prostate. He has been placed on Flomax and is being seen by urology. He is on a GI soft diet and Ensure. We will continue the same.
--- NOTE | 2016-07-28 16:23 | CONSULTATION ---
DATE OF CONSULTATION: 07/28/2016 CONSULT PHYSICIAN: Dr. Mart Gordon. CONSULTATION FOR: Urinary retention. HISTORY OF PRESENT ILLNESS: A 81-year-old male with a previous history of BPH. He used to see Dr. Franklin Chaves and reports undergoing microwave ablation approximately 7 or 8 years ago. He reports that prior to presentation to the hospital he had nocturia 3-4, weaker stream, postvoid dribbling. He denied gross hematuria, recurrent UTIs or retention in the past. He presented with free air on 07/13/2016. He underwent exploratory laparotomy and drainage of intraabdominal intramesenteric abscess from perforated viscus. He has had a protracted course. In the interim when his Henderson catheter was removed he could not void. Per records and patient's report, this is the 3rd time that a catheter had to be replaced. He was initiated on Flomax once daily. PAST MEDICAL HISTORY: 1. Reactive airway disease. 2. Atrial fibrillation. 3. Coronary artery disease. 4. Hyperlipidemia. 5. Hypertension. 6. Neuropathy. 7. Urolithiasis. 8. BPH. 9. Rheumatoid arthritis. PAST SURGICAL HISTORY: 1. Hemorrhoidectomy. 2. Inguinal hernia repair. 3. Tonsillectomy. 4. Exploratory laparotomy. CURRENT MEDICATIONS: Please see the electronic record but of significance he has received tamsulosin and is on Dilaudid p.r.n. as well as Estrana and [place]. FAMILY HISTORY: He denies malignancies. SOCIAL HISTORY: Former smoker, denies alcohol or illicit drug use. REVIEW OF SYSTEMS: Reviewed 12 systems negative with the exception to the HPI. PHYSICAL EXAMINATION: Vital signs: T 97.9 degrees, P 70, BP 139/61. General: No acute distress. Pleasant male. HEENT: Normocephalic, atraumatic. Cardiovascular: Regular rate. Pulmonary: Bilateral breath sounds. Abdomen: Mildly tender to palpation but without guarding, Steri-Strips are evident over the incision, there is a wound VAC in place. Back: No CVA tenderness. : Uncircumcised male, normal meatus, Henderson catheter in place draining straw- colored urine, testes descended bilaterally, digital rectal examination revealed approximately 50 g smooth gland without nodules. Lymphatic: No groin lymphadenopathy. Dermatologic: Areas of ecchymosis but no rashes noted. Psychiatric: Appropriate mood and affect. Neurologic: Alert on x3. PERTINENT LABS: White cell count of 16,000, hematocrit of 31. Creatinine of 1.2. PERTINENT IMAGES: The patient had a CT of abdomen, pelvis performed on 07/25/2016 with and without IV contrast which revealed 3 mm left renal stone, bilateral peripelvic cysts, several right renal cysts as well as what appears to be a hyperdense lesion on the right kidney which is 2.5 cm. ASSESSMENT/PLAN: A 81-year-old male with longstanding history of benign prostatic hypertrophy who has had a major abdominal surgery and protracted postoperative course. I have explained to the patient that the etiology of his urinary retention is likely multifactorial with underlying BPH and contributing factors of stress of surgery, anesthesia and likely postoperative medications. We discussed his options which would be initiating Flomax 0.4 mg twice a day and either keeping Henderson catheter in with attempted voiding trial in 5-6 days versus patient performing intermittent self-catheterization. He feels strongly against intermittent catheterization. We have agreed to defer evaluation of his 2.5 cm right renal lesion until he has recovered from all this and he would benefit from getting a renal ultrasound to further stratify the risk of that lesion. PLAN: 1. Flomax 0.4 mg b.i.d. 2. Keep Henderson catheter in for now. 3. Will plan for voiding trial in 5-6 days. If patient is discharged at that time I will be happy to see him in clinic and perform formal voiding trial. 4. We will plan in the future to obtain renal ultrasound to evaluate the right hyperdense lesions seen on the CT scan. Thank you for the consultation.
[2016-07-28] MEDS ORDERED: TYLENOL PO PRN (21:37)
[2016-07-29] MEDS: CLEOCIN PO SCH ×3 (06:45→21:44)
[2016-07-29] MEDS: AZACTAM 2 GM in NS 100 ML IV SCH ×3 (06:45→21:44)
--- NOTE | 2016-07-29 09:22 | PROGRESS NOTE ---
DATE: 07/29/2016 Mr. Morris still has a CHESTER drain intra-abdominally which is draining purulence. He is eating a regular diet but he is only eating about 25% to 50% of his diet. He still has a Henderson catheter tube in place. No NG tube. His heart rate is 68, blood pressure 148/58, O2 saturation 99%. He is afebrile on IV clindamycin and Azactam. His white blood cell count has been trending down. His abdomen is soft. He has had several bowel movements. We will continue CHESTER suction and IV antibiotics, and try to have him increase his activity and pay attention to his nutrition.
[2016-07-29] MEDS: FLOMAX PO SCH ×2 (09:50→21:43)
[2016-07-29] MEDS: PROTONIX IV SCH ×2 (09:50→21:45)
[2016-07-29] MEDS: SODIUM CHLORIDE 0.9% INJ SCH ×2 (09:50→21:44)
[2016-07-29] MEDS: PERIDEX MT SCH ×2 (09:50→21:44)
[2016-07-29 10:45] LABS: MANUAL DIFF NEEDED? NO
[2016-07-29 10:48] LABS: BASO% 0.5 % (0.0-0.8); EOS# 0.22 X1000 (0.0-0.7); EOS% 1.2 % (0.0-10.0); HEMATOCRIT 32.7 % (42.0-52.0); HEMOGLOBIN 10.4 g/dL (14.0-18.0); IMM GRAN# 0.66 X1000 (0.0-0.04); IMM GRAN% 3.6 % (0.0-0.5); LYMPH# 2.16 X1000 (1.2-3.4); LYMPH% 11.7 % (20.5-51.1); MCH 30.4 PG (27-31); MCHC 31.8 g/dL (33-37); MCV 95.6 FL (81-99); MONO# 1.81 X1000 (0.11-0.59); MONO% 9.8 % (1.7-9.3); MPV 10.6 FL (7.4-10.4); NEUT% 73.2 % (42.2-75.2); PLT 429 X1000 (130-400); RBC 3.42 XMIL (4.7-6.1)
--- NOTE | 2016-07-29 10:52 | PROGRESS NOTE ---
DATE: 07/29/2016 SUBJECTIVE: Mr. Morris spiked a fever to 101.3 degrees last night. He has had no subsequent fevers. He is currently on aztreonam 1 g IV q.8 hours and oral Cleocin for diverticulitis with abscess. His white count was elevated at 16,000. A CT of the abdomen and pelvis obtained 07/25/2016 demonstrated diverticulitis with abscess in the mesenteric fat. It was partially drained. There was no evidence of a bowel obstruction. He ate about a 3rd of his meal. He had a lot of abdominal bloating and gas after his meal. He passed a semi-formed stool and has been passing large amounts of flatus. OBJECTIVE: Vital signs: Temperature 98.1 degrees, pulse 68, respirations 20, BP 148/58. CV: Regular rate and rhythm. Lungs: Clear. Abdomen: Mildly distended with bowel sounds. The midline incision is nonerythematous. There is no gross discharge along the midline incision. Extremities: Without edema. DIAGNOSTICS: A chest x-ray following placement of the PICC line was within normal limits. ASSESSMENT AND PLAN: 1. Diverticulitis with abscess. He is currently on aztreonam as well as clindamycin. We will continue broad-spectrum antibiotics. Based on his last CT scan from 07/25/2016 the size of the abscess is smaller. I do not know whether it is really necessary to repeat an abdominal CT at this point, unless he begins spiking fevers more frequently. We will continue his current antibiotics. I will recheck blood cultures as well as a UA and urine culture. His chest x-ray was clear. If he continues to spike fevers then I believe that it would be reasonable to proceed with a repeat CT scan of the abdomen and pelvis to make sure that he does not have any new abscesses of if the abscesses all are growing in size. 2. Acute urinary retention. We will continue the Henderson catheter and will make arrangements for him to see Dr. Tavarez as an outpatient.
[2016-07-29 10:59] LABS: CALCIUM 7.4 mg/dL (8.8-10.2); POTASSIUM 3.7 mmol/L (3.5-5.1)
[2016-07-29] MEDS: COUMADIN PO SCH (21:44)
[2016-07-30] MEDS: AZACTAM 2 GM in NS 100 ML IV SCH ×5 (06:28→23:58)
[2016-07-30] MEDS: CLEOCIN PO SCH (06:29)
[2016-07-30] MEDS: SODIUM CHLORIDE 0.9% INJ SCH ×2 (09:23→20:40)
[2016-07-30] MEDS: PERIDEX MT SCH ×2 (09:23→20:39)
[2016-07-30] MEDS: FLOMAX PO SCH ×2 (09:24→20:38)
[2016-07-30] MEDS: PROTONIX IV SCH ×3 (09:24→23:59)
--- NOTE | 2016-07-30 11:19 | PROGRESS NOTE ---
DATE: 07/30/2016 SUBJECTIVE: The patient is status post drainage of a diverticular abscess. He also underwent repair of an incarcerated hernia. The patient has some purulent drainage around the drainage tube in the abdominal wall and also in the bulb that is collecting the fluid, thus indicating that he still has an abdominal abscess. The patient has a leukocytosis and over the weekend had fever. MEDS: The patient is on clindamycin and aztreonam. PHYSICAL EXAMINATION: Vital Signs: Temperature is 98.4 degrees, pulse 68, respirations 20, blood pressure 146/57. General: This is a somewhat ill-appearing, elderly male. He is in no acute distress. Lungs: Clear to auscultation. Cardiovascular: Regular heart rate. Abdomen: Soft. It is not tender. There is an abdominal drain in place and there is pus coming from around that drain site and also in the bulb that is collecting the fluid from the drainage tube. There also in the abdomen is a VAC in place in the lower part of the patient's abdominal incision. Extremities: The left upper extremity is swollen. It also has some erythema on the medial aspect of the arm. The erythema does not involved the catheter site itself. LAB AND X-RAY: Today the CBC showed a white count of 18,480, hemoglobin 10.4, and platelet count 429,000. Creatinine is 1.2. GFR is 58. Blood cultures are pending. Urine culture is negative. ASSESSMENT AND PLAN: The patient has an abdominal abscess. He is having fever and leukocytosis and the exact cause of this is uncertain to me. His left arm is swollen and that is where his PICC is located and he could have a clot in that arm. He also could have an infection arising from the PICC itself. My plan is to culture the purulent drainage around the tube site and to stop clindamycin and start daptomycin. This afternoon I plan to see the wound in the patient's abdominal wall where the wound VAC is located. Depending on how the wound looks I may want to get a culture from the wound site. The patient's comorbidities are that he is very elderly and had diverticulitis which apparently perforated and caused an abscess.
[2016-07-30] MEDS: CUBICIN (FOR INPATIENT USE) 600 MG in NS 100 ML IV SCH ×2 (13:27→20:39)
--- NOTE | 2016-07-30 16:54 | PROGRESS NOTE ---
DATE: 07/30/2016 SUBJECTIVE: The patient says he is feeling a little better overall. He remains tired and weak. He is starting to eat a little more. He has had a few bowel movements over the weekend. OBJECTIVE: Vital Signs: He is afebrile. vital signs are normal. He was noted to have a fever of 101 on 07/28. Otherwise, his temperature ranges 98-99. His CHESTER drain is draining some purulent fluid, anywhere from 10 mL to 26 mL per day. General: He is alert and oriented x4. No acute distress. CARDIOVASCULAR: Regular rate and rhythm. Respiratory: No work of breathing. GI: Soft, mild tenderness. Upper abdominal incision is healing well. The lower open wound is covered with the wound VAC. No surrounding induration or erythema. LABORATORY: White blood cell count 18,000, hemoglobin 10.4. Metabolic profile reviewed and unremarkable. Microbiology, there were blood cultures drawn yesterday which are pending, but a urine culture drawn yesterday is negative. ASSESSMENT AND PLAN: A 81-year-old male with persistent intra-abdominal abscess. At this point, I think he is in a stable state with this chronic infection. There is a drain which is draining the abscess. He is on broad-spectrum antibiotics. We may consider culturing the fluid from the drain and looking at his abdominal open wound to see if there is methicillin-resistant Staphylococcus aureus and could add coverage for that. Otherwise, I think he can go home within the next couple of days to continue a course of IV antibiotics for the next 3-4 weeks. Hopefully, this will resolve with this kind of conservative care. However, if he persists after several weeks and does not have resolution, then we are going to have to the re-explore him. At this time though, I think he has a hostile abdomen and the risks outweigh the benefits.
[2016-07-30 17:31] LABS: URINE MICRO REVIEW NEEDED? NO; URINE SOURCE CATH
--- NOTE | 2016-07-30 17:34 | PROGRESS NOTE ---
DATE: 07/30/2016 In regard to the patient's open wound on the lower abdomen, I have discussed this with the Wound Care nurse. She did change his VAC dressing today. The wound is clean. No signs of necrosis or purulence. No signs of infection. The VAC was replaced. At this point I think that is a nonissue and should gradually get better with continued wound VAC therapy at home. We should proceed with discharge tomorrow barring any setbacks overnight.
[2016-07-30 17:44] LABS: BILIRUBIN URINE NEGATIVE (NEGATIVE); BLOOD URINE NEGATIVE (NEGATIVE); COLOR YELLOW; GLUCOSE URINE NEGATIVE (NEGATIVE); LEUKOCYTES URINE NEGATIVE (NEGATIVE); NITRITE URINE NEGATIVE (NEGATIVE); PROTEIN URINE TRACE mg/dL (NEGATIVE); SP GRAVITY URINE 1.016; TURBIDITY URINE CLEAR (CLEAR); UROBILINOGEN URINE NORMAL (NORMAL)
[2016-07-30 17:47] LABS: UR EPITHELIAL CELLS <10 /HPF (<10); URINE BACTERIA NEGATIVE /HPF; URINE RBC <10 /HPF (<10); URINE WBC <10 /HPF (<10)
[2016-07-30] MEDS: COUMADIN PO SCH (20:39)
--- NOTE | 2016-07-30 21:51 | PROGRESS NOTE ---
DATE: 07/30/2016 SUBJECTIVE: The events of the weekend were reviewed. In summary, the patient spiked a temperature on Saturday evening. For this reason, patient was maintained in a hospital setting. Laboratory data has suggested a slight increase in her white blood cells. Patient has not had another fever spike since Saturday. Overall, he states he feels reasonably well. This morning, upon evaluation, patient complains of increasing swelling to the left upper extremity. He denies nausea, vomiting, shortness of breath, or chest discomfort. He continues to pass flatus. OBJECTIVE: Vital Signs: T-max 98.5, heart rate 64-69, respirations 14 and 20, blood pressure 124- 153/52-64. General: Well-nourished, well-developed, in no acute distress. Cardiovascular: Regular rate and rhythm. No significant murmurs, rubs, or gallops. Pulmonary: Clear to auscultation bilaterally. Abdomen: Soft. Post surgical tenderness. Positive bowel sounds. Extremities: Moves all extremities well. No significant clubbing or cyanosis. Patient has increased swelling in the left upper extremity with associated mild erythema at the PICC line site. Dermatologic evaluation: Reveals clean, dry and intact abdominal wounds. LABORATORY DATA: None. ASSESSMENT AND PLAN: 1. Perforated viscus with abscess formation - Patient is postoperative day #16. CT scan has suggested a residual abscess adjacent to the sigmoid colon. I have discussed this in detail with Dr. Silbey. At this point, the risk of surgical intervention outweighs the benefits. We will continue antibiotics as directed by Dr. Bazan. If patient does not achieve resolution within the next 2-3 weeks, we will consider reexploration. 2. Leukocytosis/fever - A repeat culture will be drawn from the wound VAC site. We will change clindamycin to daptomycin. We will continue aztreonam. We will follow along with Dr. Bazan. 3. Anticoagulation - The patient's INR became subtherapeutic over the weekend. Coumadin therapy was resumed. We will check INR in the a.m. 4. Urinary retention - Patient's Henderson catheter has been removed this morning. We will follow this. 5. Superficial wound infection - The patient has a wound VAC intact. We will defer management to Dr. Avery. 6. Right atrial fibrillation - We will remain aware. 7. Left upper extremity edema - I am concerned this could represent an underlying catheter associated thrombus. We will refer the patient immediately for Doppler evaluation. 8. Hypertension - Patient's blood pressure is reasonably controlled at present time. We will follow. 9. Rheumatoid arthritis. We will remain aware. 10. Disposition - At this point, the patient continues to require mcc care in the hospital setting. Should his condition continue to improve, we will consider discharge home with home health and IV antibiotics tomorrow.
[2016-07-30] MEDS ORDERED: HEPARIN ONE (23:04)
--- NOTE | 2016-07-31 02:35 | PROGRESS NOTE ---
DATE: 07/30/2016 ADDENDUM: The VAC was removed from the bottom part of the patient's incision. All of the tissues are beefy red in color. There is no odor. There is no purulence. There is no necrosis. The wound does, however, tract laterally and medially. I do not think that obtaining a culture would be helpful at this time. I do not see any definite evidence of an infection. There may be organisms that are colonizing the wound but are not actually causing an infection.
[2016-07-31 06:03] LABS: MANUAL DIFF NEEDED? NO
[2016-07-31 06:12] LABS: BASO% 0.6 % (0.0-0.8); EOS# 0.25 X1000 (0.0-0.7); EOS% 1.6 % (0.0-10.0); HEMATOCRIT 29.7 % (42.0-52.0); HEMOGLOBIN 9.4 g/dL (14.0-18.0); IMM GRAN# 0.72 X1000 (0.0-0.04); IMM GRAN% 4.7 % (0.0-0.5); LYMPH% 15.6 % (20.5-51.1); MCH 30.4 PG (27-31); MCHC 31.6 g/dL (33-37); MCV 96.1 FL (81-99); MONO# 1.66 X1000 (0.11-0.59); MONO% 10.8 % (1.7-9.3); MPV 10.9 FL (7.4-10.4); NEUT% 66.7 % (42.2-75.2); PLT 404 X1000 (130-400); RBC 3.09 XMIL (4.7-6.1)
[2016-07-31] MEDS: AZACTAM 2 GM in NS 100 ML IV SCH (06:15)
[2016-07-31 06:19] LABS: INR 1.35; PROTIME 14.4 Seconds (9.2-11.7)
[2016-07-31 06:26] LABS: ALBUMIN 2.5 g/dL (3.5-5.0); POTASSIUM 3.4 mmol/L (3.5-5.1); TOTAL BILIRUBIN 0.31 mg/dL (0.20-1.00); TOTAL PROTEIN 5.2 g/dL (6.3-8.3)
[2016-07-31] MEDS: SODIUM CHLORIDE 0.9% INJ SCH (08:11)
[2016-07-31] MEDS: PERIDEX MT SCH (08:13)
[2016-07-31] MEDS: FLOMAX PO SCH (08:13)
[2016-07-31] MEDS: PROTONIX IV SCH ×2 (08:13→09:36)
[2016-07-31 08:18] VITALS: BP 146/61
--- NOTE | 2016-07-31 08:34 | PROGRESS NOTE ---
DATE: 07/31/2016 SUBJECTIVE: The patient had no trouble overnight. He is feeling generally a little better overall, over the past few days. He is eating without vomiting. He is stooling and walking, although he is weak. OBJECTIVE: Vital signs: He is afebrile. Vital signs are stable. His CHESTER drains purulent fluid. The wound VAC his holding a good suction. General: He is alert and oriented x4. No acute distress. CV: Regular rate and rhythm. Respiratory: Bilateral unlabored breath sounds. GI: Soft. Mildly tender. Incision is healing well. The lower open wound is granulating. LABORATORY: White blood cell count down a little to 15,000. Culture of the drain fluid at this point has gram-positive cocci in the Gram stain but otherwise no new findings. ASSESSMENT AND PLAN: This is a 81-year-old male slowly recovering from intra-abdominal abscess. He is status post drainage. At this point, I think he is stable and slowly improving. The plan is to discharge him with several more weeks of IV antibiotics per Dr. Bazan, continued negative pressure wound therapy for the open wound, and home physical therapy. I will see him back in my office within a week.
--- NOTE | 2016-07-31 09:12 | PROGRESS NOTE ---
DATE: 07/31/2016 PRESENT ILLNESS: The patient is status post drainage of a diverticular abscess and repair of an incarcerated hernia. MEDICATION: The patient is receiving a combination of daptomycin and aztreonam. PHYSICAL EXAMINATION: Vital Signs: Temperature is 98 degrees, pulse 67, respirations 16, blood pressure 150/66. General: This is a somewhat ill-appearing, elderly male. He is in no acute distress. Lungs: Clear to auscultation. Cardiovascular: The heart rate is regular. Abdomen: Soft and not tender. The patient's incision is intact. There is an abdominal drain place in the left lower quadrant. Patient also has a wound at the inferior part of his incision that has a VAC in place. Extremities: The patient's arm is less swollen and erythematous. LAB AND X-RAY: Today the patient's CBC shows a white count of 15,340, hemoglobin 9.4, and platelet count 404,000. Creatinine is 1.2. The GFR is greater than 60. ASSESSMENT AND PLAN: The patient has a diverticular abscess. I think it is gradually getting better. The plan now is to send him home on IV antibiotics. Specifically he is going to be sent home on daptomycin 600 mg IV daily and aztreonam 2 g IV every 8 hours. The patient has many antibiotic allergies. I will be seeing the patient in the office in 2 weeks. I have put a consult in for [facility] to supply the patient's home IV antibiotics. The patient's comorbidities include the following. He is elderly and he has had diverticulitis where most likely a perforation occurred causing the formation of an abscess.
[2016-07-31] MEDS: CUBICIN (FOR INPATIENT USE) 600 MG in NS 100 ML IV SCH (12:04)
--- NOTE | 2016-07-31 16:49 | PROGRESS NOTE ---
DATE: 07/31/2016 SUBJECTIVE: Mr. Morris reports he has done well overnight. He had his Henderson catheter removed. He states he voided well. OBJECTIVE: Vital Signs: Temperature 98.6 degrees, pulse 68, blood pressure 146/61. General: No acute distress. Abdomen: Nontender, nondistended. : Bladder is nontender to palpation. PERTINENT LABORATORY: Creatinine is 1.2 which is stable. ASSESSMENT: A 81-year-old male with a history of urinary retention, long-standing BPH. He reports he is voiding well at this point. He is on Flomax b.i.d. I have explained to the patient that it is important for him to stay on Flomax twice a day. We discussed followup in approximately 4 weeks in clinic to review the continued medical therapy versus consideration of surgical therapy. He was understanding. PLAN: I will see him in clinic on outpatient basis in four weeks with postvoid residual and bladder scan.
--- NOTE | 2016-07-31 22:39 | DISCHARGE SUMMARY ---
ADMISSION DATE: 07/13/2016 DISCHARGE DATE: 07/31/2016 ADMISSION DIAGNOSIS: Intractable abdominal pain. DISCHARGE DIAGNOSES: 1. Perforated viscus with abscess formation, improving. 2. Leukocytosis/fever, improving. 3. Anticoagulation present on arrival. 4. Urinary retention. 5. Superficial wound infection. 6. Atrial fibrillation, present on arrival. 7. Left upper extremity edema secondary to a superficial thrombosis. 8. Hypertension, present on arrival. 9. Rheumatoid arthritis present on arrival. CONSULTATIONS: 1. Dr. Sibley with General Surgery was consulted for further evaluation and management of perforated viscus. 2. Dr. Naren Bazan with infectious disease was consulted for further evaluation and management of intraabdominal abscess. 3. Dr. Tavarez with Urology was consulted for further evaluation and management of urinary retention. PROCEDURES: 1. CT scan of the abdomen and pelvis was performed on 07/13/2016 which revealed pneumoperitoneum, the source of which is not entirely clear but most likely is a result of a perforated diverticulum either in the transverse colon or the sigmoid colon. Apparent midabdominal abscess extending to the upper pelvis. 2. An exploratory laparotomy and drainage of an intraabdominal abscess was performed on 07/14/2016. 3. CT scan abdomen, pelvis with prolific performed on 2016 which revealed diverticulitis with abscess in the mesenteries fat. This is probably at least partially drained by the catheter which is present exiting the left pelvic wall anteriorly. Residual pneumoperitoneum status post laparotomy. Right hepatic lobe lesion. 4. Multiple chest x-rays were performed. HISTORY AND PHYSICAL EXAMINATION: See admit note. PHYSICAL EXAMINATION PRIOR TO DISCHARGE: Vital Signs: Temperature 98.6 degrees, heart rate 68, respirations 18, blood pressure is 146/61. General: Well nourished, well developed, no acute distress. Cardiovascular: Regular rate and rhythm. No significant murmurs, rubs, or gallops. Pulmonary: Clear to auscultation bilaterally. Abdomen: Soft, nontender, nondistended. Positive bowel sounds. Extremities: Moves all extremities well. No significant clubbing, cyanosis or edema. Dermatologic: Evaluation reveals no evidence of rash. LABORATORY DATA: White blood cell count 15.34, hemoglobin 9.4, hematocrit 29.7, platelet count 404,000, PT 14.4, INR is 1.35. Sodium 138, potassium 3.4, chloride 100, bicarb 28, BUN 12, creatinine 1.2, glucose 101, calcium 8.0, total bilirubin 0.31, total protein 5.2, albumin 2.5, alkaline phosphatase 68, AST 25, ALT 16. HOSPITAL COURSE: Patient was admitted as per history and physical examination. Hospital course per condition is as follows. 1. Perforated viscus with abscess formation-upon admission patient was noted to have pneumoperitoneum. An abscess was identified per CT scan. Dr. Sibley was immediately consulted. Unfortunately, because of a supratherapeutic INR patient's surgery was held for approximately 12 hours. The patient was provided vitamin K and FFP. Once patient's INR was acceptable patient was taken for a laparotomy with evacuation of abscess. Patient tolerated the procedure well. Patient's intraabdominal abscess cultures grew E. coli and Proteus. Antibiotics were initiated per sensitivities. Unfortunately patient experienced a very slow recovery. Because of this, a repeat CT scan was performed. At that point modest improvement was found. Because of the slow improvement, Dr. Bazan was consulted for further evaluation and management of intraabdominal abscess. The patient's medications were adjusted. Ultimately it was deemed patient's condition would best treated medically with aztreonam and Cubicin therapy. Dr. Sibley planned close outpatient followup. Should patient not achieve significant improvement with IV antibiotics over the next 2-3 weeks we will consider reexploration. 2. Leukocytosis/fever-upon admission, patient was noted to have a significant leukocytosis. Throughout hospitalization patient has maintained a slightly elevated leukocytosis in the mid teens. At this point, I suspect this is secondary to a smoldering abscess as well as open incision wound. The patient will be treated with 3-4 weeks of IV antibiotics as an outpatient. I suspect this will help resolve the underlying leukocytosis. At time of discharge he was afebrile. 3. Anticoagulation-upon admission patient was noted to have a supratherapeutic INR. Patient's Coumadin was held. Vitamin K and FFP was provided. Throughout hospitalization patient's INR has been monitored closely. At time of discharge he is slightly subtherapeutic. He will be discharged with Coumadin 5 mg at bedtime. We will follow this up in approximately 1 week. 4. Urinary retention. While hospitalized, patient was noted to have urinary retention. He required reinsertion of a Henderson catheter on 2 separate occasions. After the last reinsertion Dr. Tavarez was consulted. His Flomax was increased to twice daily. At discharge, patient had had the Henderson catheter removed for approximately 24 hours. Close followup will be arranged as an outpatient. 5. Superficial wound infection. The patient was noted to have a superficial wound infection present after surgical intervention. A wound VAC has been placed per Dr. Sibley. We will defer management. 6. Atrial fibrillation-patient has longstanding disease. He is status post pacemaker ablation. He remained asymptomatic while hospitalized. We will continue work towards anticoagulation. 7. Right upper extremity edema secondary to superficial thrombus-patient was diagnosed on the day prior to discharge. Upper extremity Doppler revealed a superficial thrombus. Patient will be discharged home with Coumadin therapy as noted. 8. Hypertension. The patient's blood pressure remained reasonably controlled while hospitalized. We will resume patient's home medications at discharge. 9. Rheumatoid arthritis-patient's home medication have been held while hospitalized. We will resume this at discharge. DISCHARGE CONDITION: Stable. DISPOSITION: Discharge to home with home health. MEDICATIONS: 1. Acetaminophen 650 mg every 6 hours as needed. 2. Aztreonam 2 g every 8 hours. 3. Daptomycin 600 mg every 24 hours. 4. Probiotic daily. 5. Losartan 50 mg daily. 6. Omeprazole 20 mg daily. 7. Flomax 0.4 mg twice daily. 8. Coumadin 5 mg at bedtime. 9. Aspirin 81 mg every other day. 10. Folic acid 1 mg at bedtime. 11. Methotrexate 6 tablets on Sundays. FOLLOWUP: Patient to follow with me in approximately 1-2 weeks. Patient to follow with Dr. Sibley and Dr. Bazan as arranged.
--- NOTE | 2016-08-01 08:47 | Extremity Venous Study ---
PROCEDURE NAME: Venous U/S Left Arm - 07/30/2016 LEFT UPPER EXTREMITY VENOUS ULTRASOUND: INSIDE BARREL LATHE OPERATOR: Chris. REQUESTING PHYSICIAN: Dr. Gordon. INDICATION: Edema left arm. The salvage engineering technician noted this is a somewhat limited study secondary to a pacemaker on that side and a PICC line as well. FINDINGS: All deep and superficial veins were visualized in the left upper extremity. There is no evidence of deep venous thrombosis noted. Based off the images provided, I can see the PICC line coursing through the axillary vein; however, it is unclear which superficial vein that this is accessed; however, there does appear to be acute thrombus in the left cephalic vein branch from the mid upper arm to the level of the elbow. More proximally, this vein does appear compressible and uninvolved with the thrombus. SUMMARY: There is an acute superficial venous thrombosis of the left cephalic vein at the level of the mid upper arm to the elbow. Unclear is this is related to the PICC line or not. There is no evidence of deep venous thrombosis.
--- NOTE | 2016-08-01 11:43 | OPERATIVE NOTE ---
PROCEDURE DATE: 07/14/2016 PREOPERATIVE DIAGNOSIS: Perforated viscus. POSTOPERATIVE DIAGNOSES: 1. Perforated viscus. 2. Intra-abdominal and mesenteric abscess. PROCEDURES: 1. Diagnostic laparoscopy. 2. Open laparotomy. 3. Drainage of intra-abdominal abscess and mesenteric abscess. SURGEON: Donte Sibley MD. ANESTHESIA: General. ESTIMATED BLOOD LOSS: 100 mL. COMPLICATIONS: None apparent. SPECIMENS: Purulent fluid for culture and sensitivity. DRAINS: Two #19 Pedro. FINDINGS: The patient had emphysema in the mesentery of the small bowel and transverse colon and a large abscess cavity within the mesentery between the small bowel and sigmoid colon. There was no obvious small bowel or colon perforation or active leak. There did not appear to be any diverticulitis. TECHNIQUE: The patient was brought to the operating room and placed supine on the table. General anesthesia was induced. He was prepped and draped in the usual sterile fashion. Then 0.25% Marcaine with epinephrine was used to anesthetize our skin incisions. An 11 mm incision was made near the umbilicus. The fascia was exposed and incised sharply. Entry into the peritoneal cavity was obtained under direct vision with the Optiview device. Pneumoperitoneum was established. The camera was inserted. There was no evidence of injury to underlying structures. Two more 5 mm incision ports were placed in the left and right lateral abdomen. I then began exploring 1st by identifying the ligament of Treitz and then running this back proximally. This was done with some difficulty as he had a lot of intra-abdominal fat and visualization was suboptimal I did notice some emphysema within the mesentery of the small bowel. However, I never found any inflamed bowel or active perforation. I had a hard time seeing his colon and decided to go ahead and open for an open exploration. We made a generous midline incision and began exploring. I first examined the stomach and 1st and 2nd portion of the duodenum. There were no signs of any inflammation or bilious leak from a perforated ulcer. We then examined the cecum, ascending, transverse, descending, and sigmoid colon. He was noted to have diverticulosis in the sigmoid colon. However, the colon wall was soft, pliable, non-thickened, and did not appear to be consistent with diverticulitis. The rectum as well appeared normal. The small bowel from the ligament of Treitz to the terminal ileum again appeared normal. However, I found a very inflamed, swollen, fluctuant mesentery between the sigmoid colon and the small bowel. I went ahead and opened this cavity bluntly with a Alessandra and encountered a large pocket of purulent fluid. This was suctioned out. I opened this pocket up completely and washed it out generously with warm saline. It was unclear where the origin of this was, whether it was small bowel or colon. There were no signs of any succus entericus, bile, or stool grossly. At this point, as I was unclear of the etiology of this abscess and it appeared that the area of perforation had sealed, I went ahead and placed two 19 Pedro drains, 1 on each side of his abdomen through our laparoscopic port sites and placed them within the abscess cavity. These drains were anchored to the skin with nylon suture. After irrigating out his right and left pericolic gutters, mid abdomen, and pelvis thoroughly with warm saline, we suctioned this out and then closed the peritoneum with a running #1 Vicryl and several interrupted 0 Vicryl in the fascia. The fascia was then closed with a looped Maxon 1-0 suture in 2 directions. The skin was closed with skin clips. There were no apparent complications. He was awakened in stable condition and transferred to the recovery room.
--- NOTE | 2016-08-23 01:58 | DISCHARGE SUMMARY ---
ADMISSION DATE: 07/13/2016 DISCHARGE DATE: 07/31/2016 DISCHARGE SUMMARY ADDENDUM: While hospitalized, patient was noted to have stress gastritis. Gastric bleeding was noted per bloody NG tube drainage. This can be classified as gastritis with bleeding. With time and with treatment with a proton pump inhibitor, the patient achieved resolution.
--- NOTE | 2016-08-23 08:08 | DISCHARGE SUMMARY ---
ADMISSION DATE: 07/13/2016 DISCHARGE DATE: 07/31/2016 ADDENDUM REPORT: While hospitalized, patient was noted to have stress gastritis. The patient was noted to have bleeding as demonstrated by bloody NG tube drainage. This can be classified as gastritis with bleeding. With aggressive management with a proton pump inhibitor and time, patient achieved improvement.
--- NOTE | 2016-09-03 21:07 | DISCHARGE SUMMARY ---
ADMISSION DATE: 07/13/2016 DISCHARGE DATE: 07/31/2016 DISCHARGE SUMMARY ADDENDUM: For clarification, the patient was noted to have a reducible umbilical hernia on preoperative consultation. During the operation for his drainage of the intraabdominal and mesenteric abscess, I did not specifically mention this hernia. It was still present as a reducible umbilical hernia. It was repaired in the normal fashion of closing a midline laparotomy without any special interventions such as mesh placement.
== END 2016-07-31 13:12 | disposition home health service (06) | DRG 353 ==
LOC: 3N 16:47 → DIRADM 16:47 → ICU 23:05 → 4N 07-15 13:50
PROVIDERS: ADMIT Internal Medicine; ATTEND Internal Medicine
PROC: 0W9G00Z Drainage of Peritoneal Cavity with Drainage Device, Open Approach (ICD-10-PCS; principal; 2016-07-14 11:45)
PROC: 0WQF0ZZ Repair Abdominal Wall, Open Approach (ICD-10-PCS; 2016-07-14 11:45)
PROC: 0WJG4ZZ Inspection of Peritoneal Cavity, Percutaneous Endoscopic Approach (ICD-10-PCS; 2016-07-14 11:45)
PROC: 30233K1 Transfusion of Nonautologous Frozen Plasma into Peripheral Vein, Percutaneous Approach (ICD-10-PCS; 2016-07-14 11:45)
PROC: 3E0336Z Introduction of Nutritional Substance into Peripheral Vein, Percutaneous Approach (ICD-10-PCS; 2016-07-17)
PROC: 02HV33Z Insertion of Infusion Device into Superior Vena Cava, Percutaneous Approach (ICD-10-PCS; 2016-07-28)
DX: K57.20 Diverticulitis of large intestine with perforation and abscess without bleeding (principal); K29.61 Other gastritis with bleeding; E46 Unspecified protein-calorie malnutrition; K56.7 Ileus, unspecified; I82.612 Acute embolism and thrombosis of superficial veins of left upper extremity; E87.70 Fluid overload, unspecified; I48.0 Paroxysmal atrial fibrillation; E87.5 Hyperkalemia; K76.0 Fatty (change of) liver, not elsewhere classified; I10 Essential (primary) hypertension; K91.89 Other postprocedural complications and disorders of digestive system; T81.4XXA Infection following a procedure, initial encounter; T81.31XA Disruption of external operation (surgical) wound, not elsewhere classified, initial encounter; G62.9 Polyneuropathy, unspecified; B96.4 Proteus (mirabilis) (morganii) as the cause of diseases classified elsewhere; E78.5 Hyperlipidemia, unspecified; B96.20 Unspecified Escherichia coli [E. coli] as the cause of diseases classified elsewhere; E66.9 Obesity, unspecified; I25.10 Atherosclerotic heart disease of native coronary artery without angina pectoris; I34.0 Nonrheumatic mitral (valve) insufficiency; J45.909 Unspecified asthma, uncomplicated; M06.9 Rheumatoid arthritis, unspecified; M25.552 Pain in left hip; Z96.642 Presence of left artificial hip joint; K42.9 Umbilical hernia without obstruction or gangrene; R79.1 Abnormal coagulation profile; R79.89 Other specified abnormal findings of blood chemistry; Z16.23 Resistance to quinolones and fluoroquinolones; R33.9 Retention of urine, unspecified; N40.1 Benign prostatic hyperplasia with lower urinary tract symptoms; K76.9 Liver disease, unspecified; Z95.0 Presence of cardiac pacemaker; Z79.01 Long term (current) use of anticoagulants; Z87.891 Personal history of nicotine dependence; Z87.442 Personal history of urinary calculi; Z79.82 Long term (current) use of aspirin; Z79.899 Other long term (current) drug therapy; Z82.49 Family history of ischemic heart disease and other diseases of the circulatory system; Z82.3 Family history of stroke; Z68.34 Body mass index [BMI] 34.0-34.9, adult
CPT/HCPCS: 36569; 71010; 74022; 74176; 74178; 80048; 80053; 80170; 81001; 82150; 83690; 85025; 85610; 86850; 86900; 86901; 86920; 87040; 87070; 87075; 87077; 87088; 87186; 87205; 88302; 93005; 93010; 93971; 94761; C9113; J0131; J0330; J0878; J1100; J1170; J1580; J1644; J1650; J1940; J2270; J2405; J3010; J3430; J7030; J7050; J7120; P9017; Q9967; S0030; 97110-GP; 97116-GP; 97530-GP; J2710; S0073; S0164

== ENCOUNTER 2017-01-17 16:44 | Inpatient (IN) ==
--- NOTE | 2017-01-17 18:11 | PROGRESS NOTE ---
DATE: 01/17/2017 SUBJECTIVE: The patient presented to his primary care physician's office today for blood work. He was found to be quite anemic with a hemoglobin of 7 and hematocrit of 22. His INR is 1.5. He is currently bridging from Lovenox to Coumadin. He is status post robotic ventral hernia repair 1 week ago. His main symptoms are fatigue, shortness of breath and weakness. He also has some abdominal distention, pain and nausea. He is eating a little food here and there. He is keeping plenty of liquids down per his report. He is having bowel movements. I had originally planned to have him get 2 units of blood through an outpatient infusion however after hours he was sent upstairs to a room and I saw him in the room on the 4th floor. OBJECTIVE: Temperature 98 degrees, pulse 69, respirations 18, blood pressure 131/43, O2 saturation 99%.General: He is awake and alert x4. No acute distress. CV: Regular rate and rhythm. Respiratory: No work of breathing. He has bilateral breath sounds. Gastrointestinal: Soft, obese, moderately tender throughout. No rebound or guarding. He has some bruising across his flanks and lower abdomen especially on the left side where his incisions were and where the Lovenox shots have been given. There is no obvious subcutaneous hematoma present. ASSESSMENT AND PLAN: A 81-year-old male with symptomatic anemia status post robotic ventral hernia repair. We will go ahead and transfuse him 2 units of blood today. I will let him go home tonight and then come back tomorrow for outpatient hemoglobin, hematocrit and INR check. If he has evidence of any persistent bleeding then he would be readmitted for further evaluation. cc: Donte Sibley MD
[2017-01-17] MEDS ORDERED: NS 500 ML IV SCH (20:36)
[2017-01-18 07:32] LABS: INR 1.36; PROTIME 14.6 Seconds (9.2-11.7)
[2017-01-18 07:33] LABS: HEMATOCRIT 23.9 % (42.0-52.0); HEMOGLOBIN 7.6 g/dL (14.0-18.0)
[2017-01-18] MEDS ORDERED: ZOFRAN IV PRN (08:18)
--- NOTE | 2017-01-18 11:21 | Diag Imaging Result Doc PS360 ---
EXAM: CTA ABD/PELVIS W/CONTRAST INDICATION: post op acute blood loss anemia TECHNIQUE: In addition to the typical thin section CTA protocol images, 3-D MIP reconstructions were performed. COMPARISON: None. FINDINGS: There is a prominent heterogeneous collection at the ventral abdominal wall in the supraumbilical region measuring up to 14.0 x 9.0 cm axially and up to 23.6 cm craniocaudally. This appears to represent a large ventral wall hematoma. There is intermediate to high dense fluid tracking around the liver and spleen and layering in the pelvis concerning for hemoperitoneum. There is a low dense right hepatic lobe lesion that is stable measuring up to 2.6 cm in the greatest dimension. There is patchy moderate to extensive aortoiliac atherosclerotic calcification. There is no aortic aneurysm. There is minimal calcification at the origins of the celiac trunk and SMA with no significant stenosis. The MIGUEL ANGEL is grossly patent. There are two renal arteries bilaterally. There is minimal atherosclerotic calcification at the origin of the left main renal artery. There is only mild stenosis. IMPRESSION: 1.Large ventral abdominal wall hematoma. 2.Intermediate to high dense fluid tracking around the spleen and liver and layering in the pelvis worrisome for hemoperitoneum. 3.Aortoiliac atherosclerotic disease as described. 4.Incidental/nonacute findings detailed above. Electronically signed by Wayne Andrade 01/18/2017 11:18 AM
[2017-01-18] MEDS: NORCO-10 PO PRN ×2 (11:55→21:53)
[2017-01-18] MEDS: COZAAR PO SCH (11:57)
[2017-01-18] MEDS: LASIX PO SCH ×2 (11:57→12:54)
[2017-01-18] MEDS ORDERED: VITAMIN K PO ONE (13:39)
--- NOTE | 2017-01-18 15:39 | PROGRESS NOTE ---
DATE: 01/18/2017 SUBJECTIVE: The patient continues to complain of some focal abdominal tightness and distention in the upper mid abdomen. He also got up and went to the bathroom this morning and was quite lightheaded and shortness of breath and there is a report that he vomited this morning as well. OBJECTIVE: Vital signs: He is afebrile. Vital signs are stable. General: He is alert and oriented x4. No acute distress. CARDIOVASCULAR: Regular rate and rhythm. Respiratory: No work of breathing. Gastrointestinal: Soft, some firmness in the mid upper abdomen. No rebound or guarding. There is mild to moderate tenderness to palpation. LABORATORY: Hemoglobin 7.6, hematocrit 23.9. PT 14.6, INR 1.4. IMAGING: A CT of his abdomen and pelvis was ordered by me this morning when I had heard of his persistent symptomatic anemia. This is reviewed and it does show a fairly large hematoma of the abdominal wall anteriorly. There is trace fluid around the spleen and liver and in the pelvis. ASSESSMENT AND PLAN: A 81-year-old male status post ventral hernia repair, on anticoagulation now with postoperative hematoma of the abdominal wall. At this point, we are going to hold his anticoagulation, which is there for chronic atrial fibrillation. We will continue serial hemoglobin and hematocrit checks and he is going to get 2 more units of blood. He will be admitted until his blood count stabilizes and he is feeling better. At this point, I am going to hold off draining the hematoma to try to avoid any secondary contamination and infection of the abdominal wall which may involve the mesh placement. I am going to consult Dr. Mehrdad Mata in Dr. Gordon' absence for assistance with his chronic medical problems. cc: Donte Sibley MD
[2017-01-18] MEDS: FLOMAX PO SCH (18:49)
[2017-01-18 19:43] LABS: HEMATOCRIT 29.9 % (42.0-52.0); HEMOGLOBIN 9.6 g/dL (14.0-18.0)
--- NOTE | 2017-01-18 19:53 | CONSULTATION ---
DATE OF CONSULTATION: 01/18/2017 REASON FOR CONSULTATION: Postoperative anemia in this gentleman with multiple medical problems. ASSESSMENT: 1. Acute blood loss anemia due to an anterior abdominal wall hematoma. 2. History of atrial fibrillation, on long-term warfarin therapy. 3. History of asthma. 4. History of pacemaker status. 5. History of colonic diverticulosis. 6. History of coronary artery disease. 7. Essential hypertension. 8. Dyslipidemia. 9. Rheumatoid arthritis, quiescent. RECOMMENDATIONS: 1. I agree with transfusion to get his hemoglobin and hematocrit at least close to 9 and 27% given his coronary disease and pulmonary disease. 2. I think it is safe to temporarily interrupted his anticoagulation for 1-2 weeks while we establish hemostasis and a stable hemoglobin and hematocrit. The risk of stroke due to atrial fibrillation is fairly trivial for this short period of time. A single dose of oral vitamin K will probably help it become normal sooner. 3. Since he is currently having minimal if any pain, I think surgical intervention should he deferred and try to let this resolve spontaneously as surgery would increase the risk of infection in a mesh recently placed for his hernia repair. 4. Will try to maintain mobility with daily walks and sitting up in chair for meals. PRESENT ILLNESS: Mr. Morris is a 81-year-old gentleman who was admitted by Dr. Donte Sibley yesterday after he was noted to have a sudden drop in his hemoglobin and hematocrit. One week prior on 01/10 he underwent laparoscopic-assisted robotic incisional hernia repair with placement of a bilayer mesh. Blood loss was minimal at the time of surgery. His hemoglobin and hematocrit were normal at 14.2 and 45.2% prior to surgery. This morning after 2 units of packed red blood cells his hemoglobin was 7.6 and hematocrit 23.9%. Earlier today he had a CT angiogram of the abdomen performed which showed a fairly large anterior wall hematoma in the abdomen. Also noted was some fluid around the spleen and in the pelvis. There was likely some blood. Mr. Morris is comfortable and has minimal abdominal soreness unless he moves the wrong way and has occasional brief sharp pains across the upper abdomen. He has had no nausea or vomiting. His bowel movements have been regular. He had no difficulty voiding. He saw his urologist, Dr. Monsivais, yesterday and was recently started on Flomax 2 capsules daily after supper. He denies any lightheadedness today. He denies dyspnea on exertion but he has been quite sedentary here. PAST MEDICAL HISTORY: Remarkable for paroxysmal atrial fibrillation and he is on chronic Coumadin for stroke prophylaxis. He has a history of rheumatoid arthritis, followed by Dr. Marek Moreno and treated with weekly methotrexate but this is been quiescent. He has a history of previous diverticulosis, coronary artery disease, nonalcoholic fatty liver disease, essential hypertension, and BPH. HOME MEDICATIONS: Folic acid 1 mg daily, methotrexate 15 mg once weekly on Saturday orally, furosemide 20 mg every other day, Losartan 50 mg daily for hypertension, Flomax 0.8 mg 30 minutes after supper nightly, [place] 10 one q.4 hours p.r.n. for pain, warfarin 7.5 mg daily at bedtime. FAMILY HISTORY: Noncontributory. SOCIAL HISTORY: He is and lives with his , Dr. Berna Pompa. He is retired. He is a former smoker but has not smoked in years. REVIEW OF SYSTEMS: General: No fever, chills, night sweats, or weight loss. HEENT: Vision and hearing are adequate without recent changes. No difficulty chewing or swallowing. Respiratory: No cough, shortness of breath, sputum production, or hemoptysis. Cardiovascular : No recent chest pain, palpitations, orthopnea, PND, or syncope. GI: His appetite has been good. No nausea, vomiting, diarrhea, constipation, melena, or bright red blood per rectum. : Nocturia x1 to 2 with moderate urinary hesitancy. No dysuria. Rheumatologic: He has been on methotrexate for many years and has minimal, if any morning stiffness. Neurologic: No history of memory, mood, or thought disorders. PHYSICAL EXAMINATION: Vital signs: Temperature 98.4 degrees, blood pressure 125/48, pulse 68, respirations 18, O2 saturation 99% on room air. General Appearance: A heavy- set, elderly gentleman, lying in bed, in no acute distress. His 1st unit of blood today is infusing. Skin: Warm, pink, and dry without rash. Turgor is adequate. HEENT: Pupils equal, round, reactive to light. Extraocular movements intact. Oropharynx is benign. Neck: Supple. No adenopathy, JVD, or thyromegaly. Lungs: Clear to auscultation and percussion. Cardiovascular: Regular rhythm with no S3, S4, murmurs. Abdomen: Obese, soft, and minimally tender around the incision. There is an irregular, slightly fluctuant, vague appreciation of a mass to the right of the midline, extending from nearly the xiphoid down almost to the umbilicus. There is no guarding or rebound tenderness. Bowel sounds are active. Pelvic: Her genital and rectal exams are omitted. Extremities: No cyanosis, clubbing, or edema. Toes are pink and warm. Rheumatologic: No joint redness or bogginess. There is no subluxation noted. I appreciate the opportunity to see this interesting gentleman. Dr. Gordon should return on Saturday and help make a decision when to resume anticoagulation. I have ordered a protime for in the morning. cc: MD Donte Avalos MD MTDD
[2017-01-18] MEDS: FOLIC ACID PO SCH (21:53)
[2017-01-19 02:09] LABS: HEMATOCRIT 27.1 % (42.0-52.0); HEMOGLOBIN 8.7 g/dL (14.0-18.0)
[2017-01-19 05:57] LABS: BASO% 0.5 % (0.0-0.8); EOS% 0.9 % (0.0-10.0); HEMATOCRIT 29.1 % (42.0-52.0); HEMOGLOBIN 9.2 g/dL (14.0-18.0); IMM GRAN# 0.48 X1000 (0.0-0.04); IMM GRAN% 2.2 % (0.0-0.5); LYMPH# 2.65 X1000 (1.2-3.4); LYMPH% 11.9 % (20.5-51.1); MANUAL DIFF NEEDED? YES; MCH 29.6 PG (27-31); MCHC 31.6 g/dL (33-37); MCV 93.6 FL (81-99); MPV 10.6 FL (7.4-10.4); NEUT% 75.5 % (42.2-75.2); PLT 236 X1000 (130-400); RBC 3.11 XMIL (4.7-6.1)
[2017-01-19 06:01] LABS: INR 1.19; PROTIME 12.6 Seconds (9.2-11.7)
[2017-01-19 06:21] LABS: BANDS 8 % (0-1); LYMPHS 8 % (21-51); MONO 8 % (1-9)
[2017-01-19] MEDS ORDERED: MILK OF MAGNESIA PO PRN (09:23)
[2017-01-19] MEDS ORDERED: DULCOLAX PR PRN (09:24)
[2017-01-19] MEDS: COZAAR PO SCH (09:55)
--- NOTE | 2017-01-19 09:56 | PROGRESS NOTE ---
DATE: 01/19/2017 SUBJECTIVE: He was admitted with acute blood loss anemia due to an anterior abdominal wall hematoma. He has a history of atrial fib, on long-term warfarin, history of asthma, history of pacemaker status, history of chronic diverticulosis, history of coronary artery disease, essential hypertension, rheumatoid arthritis. He received 4 units of blood. He says he feels much better today. His abdomen is not hurting as bad and he was able to get up and move around. He says that he is having quite a bit gas and feels like his bowels will move. He does not want me to add anything. At this point, I will let him have Milk of Magnesia and Dulcolax just by request. His hematocrit is stable at 29. PHYSICAL EXAMINATION: Vital Signs: Temperature 97.6 degrees, pulse 70, respirations 20, blood pressure 116/70. Lungs are clear in all lung thomson. Cardiovascular: Regular rhythm and rate without murmur or S3. Abdomen is soft. Skin is warm and dry. LABORATORY DATA: Urine output is 1200 mL. Blood count checked yesterday. White count 22,320. Hematocrit 29, platelet count 236,000. ProTime is 12.6. Abdominal and pelvic CT which was done on 01/18/2017 showed a large ventral abdominal wall hematoma, intermediate to high density fluid tracking around the spleen and liver and layering in the pelvis. Aortoiliac atherosclerotic disease. ASSESSMENT AND PLAN: 1. Status post ventral hernia repair, on anticoagulation. Now, postoperative hematoma abdominal wall. We are holding his anticoagulation which he was getting for atrial fibrillation. Continue serial hemoglobin and hematocrit. Hematocrit is stable. He has received 4 units of blood. You want to avoid draining the hematoma and avoid a secondary infection. 2. Leukocytosis, aware. Present orders reviewed. Folic acid 1 mg at bedtime, Lasix 20 mg every other day I believe, hydrocodone for pain, Cozaar 50 mg a day, methotrexate 50 mg which I think he gets on Saturday. cc: MD Donte Jensen MD
--- NOTE | 2017-01-19 13:27 | PROGRESS NOTE ---
DATE: 01/19/2017 SUBJECTIVE: The patient says he feels better. His abdomen is not hurting as much. It does not feel as tight. He is less short of breath and dizzy. He is up walking around more and starting to eat. OBJECTIVE: Vital Signs: He is afebrile. Vital signs are stable. General: He is alert and oriented x4. No acute distress. Respiratory: No work of breathing. He has bilateral breath sounds. Cardiovascular: Regular rate and rhythm. Gastrointestinal: Soft, obese, moderately tender. No rebound or guarding. No cellulitis on the abdominal wall, just some old bruising. LABORATORY: His hemoglobin and hematocrit have stabilized. The last 3 hemoglobins are 9.6, 8.7, and 9.2. His white blood cell count interestingly is 22,000. ASSESSMENT/PLAN: A 81-year-old male with abdominal wall hematoma, status post ventral hernia repair. He was on anticoagulation for atrial fibrillation. We are holding this now. His blood count seemed to be stabilizing. We will check him 1 more time tomorrow. If they are stable and he is feeling well, we will discharge him tomorrow. I still think he should hold his blood thinners for a few more days and followup with Dr. Gordon and myself this week to discuss restarting them. cc: Donte Sibley MD
[2017-01-19] MEDS ORDERED: COLACE PO PRN (16:06)
[2017-01-19] MEDS: FLOMAX PO SCH (17:52)
[2017-01-19] MEDS: FOLIC ACID PO SCH (20:27)
[2017-01-19] MEDS: NORCO-10 PO PRN (22:39)
[2017-01-20 06:19] LABS: HEMATOCRIT 29.4 % (42.0-52.0); HEMOGLOBIN 9.1 g/dL (14.0-18.0); MCH 30.1 PG (27-31); MCV 97.4 FL (81-99); MPV 10.5 FL (7.4-10.4); RBC 3.02 XMIL (4.7-6.1)
[2017-01-20 07:28] VITALS: BP 114/82
[2017-01-20] MEDS: COZAAR PO SCH (08:49)
[2017-01-20] MEDS: LASIX PO SCH (08:49)
[2017-01-20] MEDS ORDERED: METHOTREXATE PO SCH (09:00)
--- NOTE | 2017-01-20 09:17 | PROGRESS NOTE ---
DATE: 01/20/2017 SUBJECTIVE: The patient will be discharged today. Feels much better, sitting up eating breakfast. Dr. Sibley is going to discharge him today. Abdomen feels less tense. PHYSICAL EXAMINATION: Vital Signs: Temperature 98.1 degrees. He has remained afebrile. Pulse 69, respirations 20, blood pressure 114/82. Lungs: Are clear in all lung thomson. Cardiovascular Examination: Regular rhythm and rate without murmur or S3. Abdomen: Softer. No tenderness. ASSESSMENT/PLAN: Status post abdominal wall hematoma which is resolving status post ventral hernia repair. He was on anticoagulation for atrial fibrillation. Holding the anticoagulation. Blood count seems to have stabilized. He did receive 4 units of blood, I believe. Hematocrit is stable. Able to go home today. cc: MD Donte Jensen MD
--- NOTE | 2017-01-20 21:10 | DISCHARGE SUMMARY ---
ADMISSION DATE: 01/18/2017 DISCHARGE DATE: 01/20/2017 ADMITTING DIAGNOSES: 1. Symptomatic anemia. 2. Status post robotic ventral hernia repair. 3. History of atrial fibrillation on anticoagulation. 4. History of asthma. 5. History of coronary artery disease. 6. History of essential hypertension. DISCHARGE DIAGNOSES: 1. Symptomatic anemia. 2. Status post robotic ventral hernia repair. 3. History of atrial fibrillation on anticoagulation. 4. History of asthma. 5. History of coronary artery disease. 6. History of essential hypertension. 7. Acute blood loss anemia. 8. Anterior abdominal wall hematoma. PROCEDURES: None. ADMITTING PHYSICIAN: Donte Sibley. CONCRETE VIBRATOR OPERATOR: Mehrdad Mata. BRIEF HISTORY: This 81-year-old male who is 1 week status post robotic ventral hernia repair who had been taking Lovenox and Coumadin until his INR was therapeutic. He initially did okay the 1st few days at home and then he started experiencing worsening shortness of breath, lightheadedness, dizziness and weakness. His primary care physician found him to be quite anemic with a hemoglobin of 7 and hematocrit of 21 or 22 reportedly. I then admitted him for further evaluation and care. HOSPITAL COURSE: We immediately gave him 2 units of blood on the evening of admission and throughout the next day. However the next morning his H and H did not change much. It was 7.6 and 24. He was still lightheaded, dizzy and threw up 1 time. I therefore obtained a CT scan of his abdomen pelvis which revealed a fairly large abdominal wall hematoma. We held all anticoagulants and gave him 2 more units of blood. He responded well to this. His remaining blood counts throughout his admission which were checked regularly were stable and on the day of discharge his hemoglobin was 9.1, hematocrit 29.4. Over the next 2 days he progressively improved with less abdominal distention and pain. No more nausea and vomiting. He was eating again without trouble. He was ambulating without dizziness. He was afebrile. Vital signs were stable and we discharged him home on 01/20/2017. INSTRUCTIONS: He should follow up with Dr. Gordon early this week for follow up checkup and to consider restarting his Coumadin. We will probably hold off on the Lovenox this time. He will also follow up with Dr. Sibley this week for a checkup. Diet: He may eat a regular diet as tolerated. He should call Dr. Gordon or Maryjo's office for significant abdominal pain, nausea, vomiting, chest pain, shortness of breath, dizziness, lightheadedness, fever or other concerns. DISCHARGE MEDICATIONS: He will resume his home folic acid, aspirin, methotrexate, losartan, Lasix, Edmond[place], Colace, Dulcolax and Flomax. We will hold his Coumadin and Lovenox at this time and restart the Coumadin sometime this week. cc: Donte Sibley MD
== END 2017-01-20 09:45 | disposition home or self-care (01) ==
LOC: DIRADM → 4N 16:44
PROVIDERS: ADMIT Surgery; ATTEND Surgery